=== PATIENT | female | born 1970 | race African-American/Black ===

== ENCOUNTER 2019-12-24 15:26 | Inpatient (IN) | payer MEDICAID, OTHER ==
[~2019-12-24] VITALS: Ht 165.1 cm; Wt 52.6 kg
[~2019-12-24 15:26] MED LIST: ATIVAN1 MG ORAL; COLACE100 MG ORAL; FOLIC ACID1 MG ORAL; MIRALAX17 GM ORAL; MULTIVITAMINS1 EAC2 ORAL; NKM; PERCOCET 7.5-31 EACH ORAL; PROTONIX40 MG ORAL; REGLAN5 MG ORAL; THIAMINE HCL100 MG ORAL; ZOFRAN4 MG ORAL
--- NOTE | 2019-12-24 15:28 | NUR ---
ED Nurse Note: PT arrived with ra 826 due upper left badomen pain x 3 days with nausea and vomiting. Pt reports she cant keep anything down. pt groaning. pt states he has history of pancreatitis.
[2019-12-24 15:29] VITALS: BP 118/86
[2019-12-24] MEDS ORDERED: Morphine Sulfate 4mg/ml Inj (IV USE ONLY) IVP ONE ×2 (15:45→16:45)
--- NOTE | 2019-12-24 16:03 | Emergency Room Report ---
History of Present Illness General Chief Complaint: Abdominal Pain Source: Patient, EMS Present Illness HPI Patient has a history of alcohol abuse. She states that intermittently she has quit drinking. She states that she has had pancreatitis in the past, however, it has been a couple years since she has had an episode of pancreatitis. She admits that 3 days ago she did have a drinking binge. Since that time she has had pain in her upper abdomen and vomiting. She states that she tried to take hydrocodone at home but the pain and vomiting were too severe to tolerate. She states this feels exactly how her pancreatitis is felt in the past. She denies fever or chills. She denies headache or neck pain. She denies trauma. She has no other complaints. Allergies: Coded Allergies: No Known Allergies (Unverified , 01/04/13) COVID-19 Screening Contact w/high risk pt: No Experienced COVID-19 symptoms?: Yes COVID-19 Testing performed LEGAL SERVICES PROFESSIONAL: No - UNK Patient History Past Medical History: see triage record, HTN, other - pancreatitis secondary to ETOH abuse Social History: Reports: smoking, alcohol use - heavy, drug use - THC occasionally Now: No Reviewed Nursing Documentation: PMH: Agreed; PSxH: Agreed Nursing Documentation-PMH Past Medical History: No History, Except For Hx Cardiac Problems: No Hx Hypertension: Yes Hx Cancer: No Hx Neurological Problems: No Review of Systems All Other Systems: negative except mentioned in HPI Physical Exam Vital Signs Date Time Temp Pulse Resp B/P (MAP) Pulse Ox O2 Delivery O2 Flow Rate FiO2 12/24/19 15:20 99.3 124 20 118/86 (97) 98 Room Air Sp02 EP Interpretation: reviewed, normal General Appearance: no apparent distress, alert, GCS 15, non-toxic Head: normocephalic, atraumatic Eyes: bilateral eye normal inspection, bilateral eye PERRL ENT: hearing grossly normal, normal pharynx, no angioedema, normal voice Neck: full range of motion, supple/symm/no masses Respiratory: chest non-tender, lungs clear, normal breath sounds, no respiratory distress, no retraction, no accessory muscle use, speaking full sentences Cardiovascular #1: regular rate, rhythm, no edema, tachycardia Gastrointestinal: soft, non-distended, no rebound, guarding - voluntary, tenderness - TTP in the epigastrium Rectal: deferred Musculoskeletal: back normal, normal range of motion, non-tender Neurologic: alert, motor strength/tone normal, oriented x3, sensory intact, responsive, speech normal Psychiatric: judgement/insight normal, memory normal, mood/affect normal, no suicidal/homicidal ideation Skin: no rash, normal color Medical Decision Making Diagnostic Impression: Primary Impression: Gastritis Additional Impressions: Dehydration Intractable vomiting VANDANA (acute kidney injury) UTI (urinary tract infection) ER Course This patient had presented with epigastric pain. Differential diagnosis included pancreatitis, cholecystitis, cholelithiasis, hepatitis, gastritis to name a few. Initially I suspected pancreatitis, however, the patient's lipase was within normal limits. Patient did have several episodes of vomiting and required narcotic pain medication to control her pain. Given the ongoing symptoms, I did obtain an ultrasound of the right upper quadrant to assess the gallbladder. Gallbladder was unremarkable. The liver was found to have some coarsened echogenicity. I suspect the liver findings are secondary to the patient's known heavy alcohol abuse. Patient was given IV Pepcid and did have significant improvement in her symptoms. I suspect there is an element of gastritis and possibly peptic ulcer disease. The patient's urinalysis is contaminated, as a precaution she was given broad-spectrum antibiotics. Patient also had an elevated creatinine consistent with acute kidney injury. Patient is admitted for acute kidney injury, dehydration and intractable vomiting. Laboratory Tests Test 12/24/19 15:30 12/24/19 18:16 White Blood Count 13.8 K/UL (4.8-10.8) H Red Blood Count 4.73 M/UL (4.20-5.40) Hemoglobin 16.6 G/DL (12.0-16.0) H Hematocrit 49.2 % (37.0-47.0) H Mean Corpuscular Volume 104 FL (80-99) H Mean Corpuscular Hemoglobin 35.0 PG (27.0-31.0) H Mean Corpuscular Hemoglobin Concent 33.7 G/DL (32.0-36.0) Red Cell Distribution Width 13.1 % (11.6-14.8) Platelet Count 295 K/UL (150-450) Mean Platelet Volume 7.4 FL (6.5-10.1) Neutrophils (%) (Auto) 78.9 % (45.0-75.0) H Lymphocytes (%) (Auto) 12.9 % (20.0-45.0) L Monocytes (%) (Auto) 7.6 % (1.0-10.0) Eosinophils (%) (Auto) 0.0 % (0.0-3.0) Basophils (%) (Auto) 0.7 % (0.0-2.0) Sodium Level 138 MMOL/L (136-145) Potassium Level 3.6 MMOL/L (3.5-5.1) Chloride Level 97 MMOL/L (98-107) L Carbon Dioxide Level 23 MMOL/L (21-32) Anion Gap 18 mmol/L (5-15) H Blood Urea Nitrogen 30 mg/dL (7-18) H Creatinine 1.5 MG/DL (0.55-1.30) H Estimated Glomerular Filtration Rate 45.1 mL/min (>60) Glucose Level 133 MG/DL (74-106) H Calcium Level 9.8 MG/DL (8.5-10.1) Total Bilirubin 1.8 MG/DL (0.2-1.0) H Direct Bilirubin 0.4 MG/DL (0.0-0.3) H Aspartate Amino Transferase (AST) 17 U/L (15-37) Alanine Aminotransferase (ALT) 17 U/L (12-78) Alkaline Phosphatase 46 U/L (46-116) Total Protein 9.5 G/DL (6.4-8.2) H Albumin 5.2 G/DL (3.4-5.0) H Globulin 4.3 g/dL Albumin/Globulin Ratio 1.2 (1.0-2.7) Lipase 105 U/L (73-393) Urine Color Yellow Urine Appearance Cloudy Urine pH 6 (4.5-8.0) Urine Specific [place] 1.020 (1.005-1.035) Urine Protein 4+ (NEGATIVE) H Urine Glucose (UA) Negative (NEGATIVE) Urine Ketones 4+ (NEGATIVE) H Urine Blood 2+ (NEGATIVE) H Urine Nitrite Negative (NEGATIVE) Urine Bilirubin 1+ (NEGATIVE) H Urine Ictotest Negativ (NEGATIVE) Urine Urobilinogen 1 MG/DL (0.0-1.0) H Urine Leukocyte Esterase 1+ (NEGATIVE) H Urine RBC 10-15 /HPF (0 - 2) H Urine WBC 5-10 /HPF (0 - 2) H Urine Squamous Epithelial Cells Moderate /LPF (NONE/OCC) H Urine Bacteria Many /HPF (NONE) H Last Vital Signs Date Time Temp Pulse Resp B/P (MAP) Pulse Ox O2 Delivery O2 Flow Rate FiO2 12/24/19 15:29 124 20 Room Air 12/24/19 15:29 99.3 118/86 98 Disposition: ADMITTED INPATIENT Condition: Serious Laura Fu DO Dec 24, 2019 16:03
[2019-12-24 16:04] LABS: CALCIUM 9.8 MG/DL (8.5-10.1); CREATININE 1.5 MG/DL (0.55-1.30); POTASSIUM 3.6 MMOL/L (3.5-5.1)
[2019-12-24 16:05] LABS: BASOPHILS % (AUTO) 0.7 % (0.0-2.0); HEMATOCRIT 49.2 % (37.0-47.0); HEMOGLOBIN 16.6 G/DL (12.0-16.0); LYMPHOCYTES % (AUTO) 12.9 % (20.0-45.0); MEAN CORPUSCULAR VOLUME 104 FL (80-99); MONOCYTES % (AUTO) 7.6 % (1.0-10.0); NEUTROPHILS % (AUTO) 78.9 % (45.0-75.0); PLATELET COUNT 295 K/UL (150-450); RED BLOOD COUNT 4.73 M/UL (4.20-5.40); RED CELL DISTRIBUTION WIDTH 13.1 % (11.6-14.8); WHITE BLOOD COUNT 13.8 K/UL (4.8-10.8)
[2019-12-24 16:15] LABS: ALBUMIN 5.2 G/DL (3.4-5.0); ALBUMIN/GLOBULIN RATIO 1.2 (1.0-2.7); BILIRUBIN,TOTAL 1.8 MG/DL (0.2-1.0)
[2019-12-24 16:21] LABS: BILIRUBIN,DIRECT 0.4 MG/DL (0.0-0.3)
--- NOTE | 2019-12-24 16:58 | NUR ---
ED Nurse Note: US at bedside
[2019-12-24 17:58] VITALS: BP 115/79
--- NOTE | 2019-12-24 18:08 | NUR ---
ED Nurse Note: Pt ambulated to restroom with steady gait. pt reports that pepcid alleviated her pain. pt attempting to get urine sample.
--- NOTE | 2019-12-24 18:20 | Diagnostic Imaging Report ---
EXAM: US Abdomen Complete CLINICAL HISTORY: PAIN TECHNIQUE: Real-time ultrasound of the abdomen with image documentation. COMPARISON: 09/09/2013. 03/05/2015. FINDINGS: Liver: Liver measures 12.72 cm with coarsened echogenicity. No intrahepatic bile duct dilation. Gallbladder: Gallbladder is unremarkable. No gallstones. Common bile duct: Common bile duct measures 0.3 cm. No stones. No dilation. Pancreas: The pancreas is within normal limits. Kidneys: Right kidney measures 9.4 x 3.9 x 4.8 cm without hydronephrosis. Left kidney measures 10.6 x 4.8 x 4.9 cm without hydronephrosis. 1.4 cm simple left renal cyst, based on ultrasound criteria. No follow-up is necessary. No stones. Spleen: Spleen measures 6.82 cm. Aorta: Abdominal aorta is normal in caliber. No aneurysm. Inferior vena cava: Inferior vena cava is unremarkable. IMPRESSION: 1. Coarsened echogenicity of the hepatic parenchyma of uncertain significance. 2. Clinical correlation and correlation with laboratory values are advised. Magnetic resonance imaging of the abdomen may provide additional information. 3. Simple left renal cyst, based on ultrasound criteria. Similar finding was noted on the previous study of 09/09/2013.
--- NOTE | 2019-12-24 18:34 | NUR ---
ED Nurse Note: URINE SAMPLE SENT TO LAB
[2019-12-24 18:44] LABS: APPEARANCE,URINE CLOUDY; BILIRUBIN, URINE 1+ (NEGATIVE); GLUCOSE, URINE (UA) NEGATIVE (NEGATIVE); KETONES,URINE 4+ (NEGATIVE); LEUKOCYTE ESTERASE ,URINE 1+ (NEGATIVE); NITRITE,URINE NEGATIVE (NEGATIVE); PH,URINE 6 (4.5-8.0); PROTEIN,URINE 4+ (NEGATIVE); UROBILINOGEN,URINE 1 MG/DL (0.0-1.0)
[2019-12-24 18:46] LABS: COLOR,URINE YELLOW
--- NOTE | 2019-12-24 19:05 | NUR ---
ED Nurse Note: Report received from ALICIA Paredes.
[2019-12-24 19:45] VITALS: BP 118/71
--- NOTE | 2019-12-24 19:45 | NUR ---
ED Nurse Note: Patient is resting in bed at this time. NAD. Vital signs are stable as documented. She feels much better after medication and has no pain at this time. Safety measures met.
--- NOTE | 2019-12-24 20:30 | NUR ---
ED Nurse Note: report given to ALICIA Villalpando
[2019-12-24] MEDS: Thiamine HCl 100 MG in D5W 55 ML IVPB SCH (20:37)
--- NOTE | 2019-12-24 20:50 | NUR ---
ED Nurse Note: Patient transported to [facility] unit at this time via gurney by [employer]. She is aaox4, breathing is normal and unlabored at time of ED departure. VSS. IV is patent and intact. She took all belongings with her.
--- NOTE | 2019-12-24 21:00 | NUR ---
NURSE NOTES: Received patient per arslan accompanied by ER staff. patient is awake and verbally responsive. alert and oriented X4. on room air, no sob. with iv line on the right ac, saline lock. denies any pain or discomfort. no nausea and vomiting. no skin issues noted. with android phone and ipad with chargers on the bedside. ambulates. with metoclopramide 1 bottle (4 tabs) brought by patient and sent it to the pharmacy([facility]). received admission orders for iv fluids and lab works. reiterated to call and ask for assistance. call light and light button within easy reach. bed locked and in lowest position. will continue plan of care.
--- NOTE | 2019-12-24 21:30 | NUR ---
NURSE NOTES: paged dr. frost for the rest of admission orders, awaiting for call back.
--- NOTE | 2019-12-24 21:50 | NUR ---
NURSE NOTES: Received the rest of admission orders.noted and carried out. charge nurse made aware,
[2019-12-24] MEDS: D5NS 1,000 ML IV SCH (23:13)
[2019-12-25] VITALS: BP 121/76
[2019-12-25] MEDS ORDERED: METOCLOPRAM5 MG/1 M1 IJ (01:02)
--- NOTE | 2019-12-25 01:49 | NUR ---
NURSE NOTES: patient complaints of nausea and vomiting; zofran given as ordered. assisted patient to the bathroom for safety. offered basin and placed on the bedside.
[2019-12-25 04:00] VITALS: BP 115/72
--- NOTE | 2019-12-25 06:23 | NUR ---
NURSE HAND-OFF: Important Events on Shift: N/V X1; ZOFRAN GIVEN ORDERED Patient Status: STABLE Diet: npo EXCEPT ice chips and meds Pending Orders: Pending Results/Labs: Pending MD notification: Latest Vital Signs: Temperature 97.9 , Pulse 75 , B/P 115 /72 , Respiratory Rate 20 , O2 SAT 99 , Room Air, O2 Flow Rate . Vital Sign Comment: Latest Dixon Fall Score: 20 Fall Risk: Low Risk Safety Measures: Call light Within Reach, Bed Alarm Zone 1, Side Rails Side Rails x2, Bed position Low and Locked. Fall Precautions: Patient Fall Education Addendum: 12/25/19 at 0723 by Laina Rodriguez RN HAND-OFF: Report given to miguel silva.
--- NOTE | 2019-12-25 07:22 | NUR ---
NURSE NOTES: Receive report from ALICIA gould. Patient is awake and verbally responsive. alert and oriented X4. on room air, no sob. with iv line on the right ac, patent and intact. denies any pain or discomfort. no nausea and vomiting. Patient currently on NPO except ice chips and meds until further evaluation. Rn instructed patient to use call light for assistance. bed is locked and placed in lowest position. Call light within reach. Will continue to monitor
[2019-12-25 08:00] VITALS: BP 111/57
--- NOTE | 2019-12-25 08:02 | Consultation ---
History of Present Illness General Date patient seen: Dec 25, 2019 Time patient seen: 11:05 Chief Complaint: Abdominal Pain Referring physician: PCP Reason for Consultation: R/o infection Present Illness HPI 49yo F with heavy EtOH use who p/w abd pain. Pt was ruled out for pancreatitis and cholecystitis in ED, no other complaints. R/o UTI, UCx NTD. Pt has remained AF, HDS on RA in house. Mild leukocytosis to 13 on admission. Pt is moaning in pain on exam, history limited, just says her pain is so bad and she's been vomiting for 3 days. Denies any fevers/chills, cough, SOB, resp issues, diarrhea, rashes or other complaints. Allergies: Coded Allergies: No Known Allergies (Unverified , 01/04/13) Medication History Scheduled Metoclopramide Hcl (Metoclopramide Hcl*), 10 MG IJ EVERY 4 HOURS, (Reported) No Known Medications* (NKM - No Known Medications*), 0 ., (Reported) Discontinued Medications Lorazepam* (Ativan*), 1 MG ORAL THREE TIMES A DAY Discontinued Reason: Pt stopped taking med Ondansetron (Zofran), 4 MG ORAL Q8H PRN for Nausea & Vomiting Discontinued Reason: Pt stopped taking med Patient History Healthcare decision maker Resuscitation status Advanced Directive on File Review of Systems ROS Narrative 10-point ROS neg except as noted in HPI Physical Exam Physical Exam Narrative Gen: Moaning in pain HEENT: NCAT Pulm: BL chest rise on RA Abd: Thin, TTP diffusely Ext: No c/c/e Skin: No visible rashes Neuro: Awake, non-focal Last 24 Hour Vital Signs Date Time Temp Pulse Resp B/P (MAP) Pulse Ox O2 Delivery O2 Flow Rate FiO2 12/25/19 04:00 97.9 75 20 115/72 (86) 99 12/25/19 00:00 98.6 79 20 121/76 (91) 98 12/24/19 21:00 Room Air 12/24/19 20:50 98.6 81 15 120/74 100 Room Air 12/24/19 19:45 99.0 86 14 118/71 100 Room Air 12/24/19 17:58 99.0 101 19 115/79 100 Room Air 12/24/19 17:08 99.3 12/24/19 16:14 99.3 11/17/20 15:29 124 20 Room Air 12/24/19 15:29 99.3 124 20 118/86 98 Room Air 12/24/19 15:20 99.3 124 20 118/86 (97) 98 Room Air Intake and Output 12/24/19 12/25/19 19:00 07:00 Intake Total 1000 ml Output Total 0 ml Balance 1000 ml Intake IV Total 1000 ml Output Urine Total 0 ml # Voids 3 Laboratory Tests Test 12/24/19 15:30 12/24/19 18:16 White Blood Count 13.8 K/UL (4.8-10.8) H Red Blood Count 4.73 M/UL (4.20-5.40) Hemoglobin 16.6 G/DL (12.0-16.0) H Hematocrit 49.2 % (37.0-47.0) H Mean Corpuscular Volume 104 FL (80-99) H Mean Corpuscular Hemoglobin 35.0 PG (27.0-31.0) H Mean Corpuscular Hemoglobin Concent 33.7 G/DL (32.0-36.0) Red Cell Distribution Width 13.1 % (11.6-14.8) Platelet Count 295 K/UL (150-450) Mean Platelet Volume 7.4 FL (6.5-10.1) Neutrophils (%) (Auto) 78.9 % (45.0-75.0) H Lymphocytes (%) (Auto) 12.9 % (20.0-45.0) L Monocytes (%) (Auto) 7.6 % (1.0-10.0) Eosinophils (%) (Auto) 0.0 % (0.0-3.0) Basophils (%) (Auto) 0.7 % (0.0-2.0) Sodium Level 138 MMOL/L (136-145) Potassium Level 3.6 MMOL/L (3.5-5.1) Chloride Level 97 MMOL/L (98-107) L Carbon Dioxide Level 23 MMOL/L (21-32) Anion Gap 18 mmol/L (5-15) H Blood Urea Nitrogen 30 mg/dL (7-18) H Creatinine 1.5 MG/DL (0.55-1.30) H Estimat Glomerular Filtration Rate 45.1 mL/min (>60) Glucose Level 133 MG/DL (74-106) H Calcium Level 9.8 MG/DL (8.5-10.1) Total Bilirubin 1.8 MG/DL (0.2-1.0) H Direct Bilirubin 0.4 MG/DL (0.0-0.3) H Aspartate Amino Transf (AST/SGOT) 17 U/L (15-37) Alanine Aminotransferase (ALT/SGPT) 17 U/L (12-78) Alkaline Phosphatase 46 U/L (46-116) Total Protein 9.5 G/DL (6.4-8.2) H Albumin 5.2 G/DL (3.4-5.0) H Globulin 4.3 g/dL Albumin/Globulin Ratio 1.2 (1.0-2.7) Lipase 105 U/L (73-393) Urine Color Yellow Urine Appearance Cloudy Urine pH 6 (4.5-8.0) Urine Specific [place] 1.020 (1.005-1.035) Urine Protein 4+ (NEGATIVE) H Urine Glucose (UA) Negative (NEGATIVE) Urine Ketones 4+ (NEGATIVE) H Urine Blood 2+ (NEGATIVE) H Urine Nitrite Negative (NEGATIVE) Urine Bilirubin 1+ (NEGATIVE) H Urine Ictotest Negativ (NEGATIVE) Urine Urobilinogen 1 MG/DL (0.0-1.0) H Urine Leukocyte Esterase 1+ (NEGATIVE) H Urine RBC 10-15 /HPF (0 - 2) H Urine WBC 5-10 /HPF (0 - 2) H Urine Squamous Epithelial Cells Moderate /LPF (NONE/OCC) H Urine Bacteria Many /HPF (NONE) H Urine Opiates Screen Positive (NEGATIVE) H Urine Barbiturates Screen Negative (NEGATIVE) Phencyclidine (PCP) Screen Negative (NEGATIVE) Urine Amphetamines Screen Negative (NEGATIVE) Urine Benzodiazepines Screen Negative (NEGATIVE) Urine Cocaine Screen Negative (NEGATIVE) Urine Marijuana (THC) Screen Positive (NEGATIVE) H Microbiology Date/Time Source Procedure Growth Status 12/24/19 18:16 Urine,Clean Catch Urine Culture - Preliminary NO GROWTH Resulted Height (Feet): 5 Height (Inches): 5.00 Weight (Pounds): 116 Medications Current Medications Medications (Trade) Dose Ordered Sig/Vicki Route PRN Reason Start Time Stop Time Status Last Admin Dose Admin Clonidine HCl (Catapres Tab) 0.1 mg Q4H PRN ORAL bp over 170 syst 12/24/19 20:15 03/23/20 20:14 Dextrose/Sodium Chloride 1,000 ml @ 75 mls/hr [id number] IV 12/24/19 23:00 01/23/20 22:59 12/24/19 23:13 Famotidine (Pepcid I.v.) 20 mg Q12HR IVP 12/24/19 21:00 01/23/20 20:59 12/24/19 21:31 Ondansetron HCl (Zofran) 4 mg EVERY 4 HOURS PRN IVP Nausea & Vomiting 12/24/19 22:15 01/23/20 22:14 12/25/19 01:33 Thiamine HCl 100 mg/Dextrose 56 ml @ 112 mls/hr Q24H IVPB 12/24/19 20:30 01/23/20 20:29 12/24/19 20:37 Assessment/Plan Assessment/Plan: 49yo F with: Afebrile Leukocytosis to 13, improving Abd pain Heavy EtOH use R/o sepsis, UTI, cholecystitis R/o pancreatitis, lipse wnl 12/23 UA 5-10 WBC, UCx NTD Utox +opiates and MJ Abd US: Coarsened echogenicity of the hepatic parenchyma of uncertain significance. Simple left renal cyst, based on ultrasound criteria. Similar finding was noted on the previous study of 09/09/2013. VANDANA vs CKD, Cr 1.5 Plan: Monitor off abx for now, no clear infection present CT A/P to evaluate for underlying process given severe abd pain HIV screen COVID rapid Ag screen Trend WBC Trend Cr Monitor CBC/CMP Monitor temp curve, hemodynamics Monitor resp status D/w RN and primary Dr. Fish Thank you for this consult. [facility] will continue to follow. Geraldine Ritchie M.D. Dec 25, 2019 08:02
--- NOTE | 2019-12-25 09:10 | General Progress Note ---
Subjective Allergies: Coded Allergies: No Known Allergies (Unverified , 01/04/13) Objective Last 24 Hour Vital Signs Date Time Temp Pulse Resp B/P (MAP) Pulse Ox O2 Delivery O2 Flow Rate FiO2 12/25/19 04:00 97.9 75 20 115/72 (86) 99 12/25/19 00:00 98.6 79 20 121/76 (91) 98 12/24/19 21:00 Room Air 12/24/19 20:50 98.6 81 15 120/74 100 Room Air 12/24/19 19:45 99.0 86 14 118/71 100 Room Air 12/24/19 17:58 99.0 101 19 115/79 100 Room Air 12/24/19 17:08 99.3 12/24/19 16:14 99.3 12/24/19 15:29 124 20 Room Air 12/24/19 15:29 99.3 124 20 118/86 98 Room Air 12/24/19 15:20 99.3 124 20 118/86 (97) 98 Room Air Intake and Output 12/24/19 12/25/19 19:00 07:00 Intake Total 1000 ml Output Total 0 ml Balance 1000 ml Intake IV Total 1000 ml Output Urine Total 0 ml # Voids 3 Laboratory Tests 12/24/19 15:30: White Blood Count 13.8H, Red Blood Count 4.73, Hemoglobin 16.6H, Hematocrit 49. 2H, Mean Corpuscular Volume 104H, Mean Corpuscular Hemoglobin 35.0H, Mean Co rpuscular Hemoglobin Concent 33.7, Red Cell Distribution Width 13.1, Platelet Count 295, Mean Platelet Volume 7.4, Neutrophils (%) (Auto) 78.9H, Lymphocytes (%) (Auto) 12.9L, Monocytes (%) (Auto) 7.6, Eosinophils (%) (Auto) 0.0, Basophils (%) (Auto) 0.7, Sodium Level 138, Potassium Level 3.6, Chloride Level 97L, Carbon Dioxide Level 23, Anion Gap 18H, Blood Urea Nitrogen 30H, Creatinine 1.5H, Estimat Glomerular Filtration Rate 45.1, Glucose Level 133H, Calcium Level 9.8, Total Bilirubin 1.8H, Direct Bilirubin 0.4H, Aspartate Amino Transf (AST/SGOT) 17, Alanine Aminotransferase (ALT/SGPT) 17, Alkaline Phosphatase 46, Total Protein 9.5H, Albumin 5.2H, Globulin 4.3, Albumin/Globulin Ratio 1.2, Lipase 105 12/24/19 18:16: Urine Color Yellow, Urine Appearance Cloudy, Urine pH 6, Urine Specific [place] 1.020, Urine Protein 4+H, Urine Glucose (UA) Negative, Urine Ketones 4+H, Urine Blood 2+H, Urine Nitrite Negative, Urine Bilirubin 1+H, Urine Ictotest Negativ, Urine Urobilinogen 1H, Urine Leukocyte Esterase 1+H, Urine RBC 10-15H, Urine WBC 5-10H, Urine Squamous Epithelial Cells ModerateH, Urine Bacteria ManyH, Urine Opiates Screen PositiveH, Urine Barbiturates Screen Negative, Phencyclidine (PCP) Screen Negative, Urine Amphetamines Screen Negative, Urine Benzodiazepines Screen Negative, Urine Cocaine Screen Negative, Urine Marijuana (THC) Screen PositiveH Height (Feet): 5 Height (Inches): 5.00 Weight (Pounds): 116 General Appearance: alert EENT: PERRL/EOMI Neck: supple Cardiovascular: normal rate Abdomen: soft, hypoactive bowel sounds, tender Extremities: non-tender Assessment/Plan Assessment/Plan: ETOH abuse abd pain ? cirrhosis RI h/o pancreatitis labs and us reviewed start clears and advance as tolerated thiamine ppi repeat labs will fu Homero Mckeon MD Dec 25, 2019 09:10
[2019-12-25 09:30] LABS: EOSINOPHILS % (AUTO) 0.3 % (0.0-3.0); HEMATOCRIT 41.6 % (37.0-47.0); HEMOGLOBIN 13.8 G/DL (12.0-16.0); LYMPHOCYTES % (AUTO) 30.4 % (20.0-45.0); MEAN CORPUSCULAR VOLUME 108 FL (80-99); MONOCYTES % (AUTO) 8.7 % (1.0-10.0); NEUTROPHILS % (AUTO) 59.6 % (45.0-75.0); PLATELET COUNT 204 K/UL (150-450); RED BLOOD COUNT 3.85 M/UL (4.20-5.40); RED CELL DISTRIBUTION WIDTH 13.1 % (11.6-14.8); WHITE BLOOD COUNT 10.2 K/UL (4.8-10.8)
--- NOTE | 2019-12-25 10:28 | NUR ---
NURSE NOTES: patient in pain, pain scale 10/10. RN made Dr. Mckeon and Dr. Fish aware. Per cassidy Daniels Rn order Morphine 2mg IV ONCE for pain
[2019-12-25 10:51] LABS: ALANINE AMINOTRANSFERASE 15 U/L (12-78); ALBUMIN 3.7 G/DL (3.4-5.0); ALBUMIN/GLOBULIN RATIO 1.1 (1.0-2.7); ALKALINE PHOSPHATASE 32 U/L (46-116); ANION GAP 8 mmol/L (5-15); ASPARTATE AMINO TRANSFERASE 16 U/L (15-37); BILIRUBIN,TOTAL 1.5 MG/DL (0.2-1.0); BLOOD UREA NITROGEN 13 mg/dL (7-18); CALCIUM 8.5 MG/DL (8.5-10.1); CARBON DIOXIDE 29 MMOL/L (21-32); CHLORIDE 103 MMOL/L (98-107); CHOLESTEROL 178 MG/DL (< 200); CREATINE KINASE 66 U/L (26-308); CREATININE 0.8 MG/DL (0.55-1.30); GAMMA GLUTAMYL TRANSPEPTIDASE 21 U/L (5-85); HDL CHOLESTEROL 76 MG/DL (40-60); PHOSPHORUS 2.3 MG/DL (2.5-4.9); SODIUM 140 MMOL/L (136-145); TRIGLYCERIDES 90 MG/DL (30-150)
[2019-12-25] MEDS ORDERED: Morphine Sulfate 2mg/ml Inj(IV/IM USE ONLY) IVP SCH (11:00)
--- NOTE | 2019-12-25 11:30 | History and Physical Report ---
DATE OF ADMISSION: 12/24/2019 TIME SEEN: On 12/25/2019 at 10 a.m. CONSULTANTS: 1. Crescencio Cottrell MD. 2. Homero Mckeon MD. 3. Nils Norton MD. CHIEF COMPLAINT: Gastritis, vomiting, UTI, VANDANA. BRIEF HISTORY: This is a 49-year-old female presents to [facility] with above-mentioned diagnoses, admitted to medical floor, currently writhing in pain in bed, refusing to answer questions. REVIEW OF SYSTEMS: Unavailable. PAST MEDICAL HISTORY: Includes abdominal pain, gastritis, VANDANA. PAST SURGICAL HISTORY: Unknown. MEDICATIONS: Include pantoprazole, morphine, Zofran, famotidine, thiamine, clonidine. ALLERGIES: Denies. SOCIAL HISTORY: Unable to obtain secondary to the patient's condition and refused PHYSICAL EXAMINATION: GENERAL: Anxious in bed, refusing to answer questions. VITAL SIGNS: Temperature 98 degrees, pulse 98, respirations 20, blood pressure 111/57. CARDIOVASCULAR: No murmur. LUNGS: Distant and clear. ABDOMEN: Positive bowel sounds. Nontender and nondistended. EXTREMITIES: No cyanosis or edema. NEUROLOGIC: The patient moves all extremities, slightly weak. LABORATORY AND DIAGNOSTIC DATA: Labs at this time show initial white count 13 now is 10.2, CBC is normal otherwise. BMP shows chloride 97, BUN and creatinine 30/1.5, glucose 133. Urinalysis, 2+ blood, 1+ leukocyte esterase. Urine tox positive for marijuana and opiates. ASSESSMENT: 1. Gastritis. 2. Vomiting. 3. Drug abuse. 4. Abdominal pain. 5. VANDANA. 6. UTI. PLAN: 1. IV fluids. 2. Pain control. 3. Dietary followup. 4. Detox. 5. Antibiotics per Infectious Diseases. 6. CBC and BMP in the morning. Franklin Fish D.O. DR: Celina JOB#: [id number] CC:
[2019-12-25 12:00] VITALS: BP 111/51
[2019-12-25] MEDS: D5NS 1,000 ML IV SCH (12:22)
[2019-12-25 12:53] LABS: BILIRUBIN,DIRECT 0.3 MG/DL (0.0-0.3)
--- NOTE | 2019-12-25 13:01 | Consultation ---
Consult Note Consult Note Asked to evaluate at the request of Dr. Fish for fluid and electrolyte management and elevated serum creatinine HPI Patient has a history of alcohol abuse. She states that intermittently she has quit drinking. She states that she has had pancreatitis in the past, however, it has been a couple years since she has had an episode of pancreatitis. She admits that 3 days ago she did have a drinking binge. Since that time she has had pain in her upper abdomen and vomiting. She states that she tried to take hydrocodone at home but the pain and vomiting were too severe to tolerate. She states this feels exactly how her pancreatitis is felt in the past. She denies fever or chills. She denies headache or neck pain. She denies trauma. She has no other complaints. Allergies: No Known Allergies (Unverified , 01/04/13) COVID-19 Screening Contact w/high risk pt: No Experienced COVID-19 symptoms?: Yes COVID-19 Testing performed BOAT TENDER: No - UNK Past Medical History: see triage record, HTN, other - pancreatitis secondary to ETOH abuse Social History: Reports: smoking, alcohol use - heavy, drug use - THC occasionally Now: No Reviewed Nursing Documentation: PMH: Agreed; PSxH: Agreed Past Medical History: No History, Except For Hx Hypertension: Yes Hx Neurological Problems: No All Other Systems: negative except mentioned in HPI Assessment/Plan Renal failure mostly dehydration Electrolyte imbalance Urine positive for cannabis and opiates Gastritis UTI Intractable vomiting IV fluid Correct electrolytes Antibiotics Per consultants Crescencio Cottrell MD Dec 25, 2019 13:01
[2019-12-25] MEDS: Potassium Phosphate 15mm/250ml 250 ML IVPB SCH ×2 (13:31→17:45)
[2019-12-25 16:00] VITALS: BP 160/92
--- NOTE | 2019-12-25 18:19 | NUR ---
NURSE NOTES: Patient continuously has intractable vomiting as well as unbearable pain. Dr. Mckeon made aware and RN was given order for morphine 2mg IV q6 PRN for pain
[2019-12-25] MEDS ORDERED: Morphine Sulfate 2mg/ml Inj(IV/IM USE ONLY) IVP PRN (18:30)
--- NOTE | 2019-12-25 19:30 | NUR ---
NURSE HAND-OFF: Important Events on Shift:intractable vomitting, continuous pain, unable to tolerate diet Patient Status: Diet: liquid diet Pending Orders: stable Pending Results/Labs:n/a Pending MD notification:n/a Latest Vital Signs: Temperature 97.8 , Pulse 100 , B/P 160 /92 , Respiratory Rate 20 , O2 SAT 100 , Room Air, O2 Flow Rate . Vital Sign Comment: stable Latest Dixon Fall Score: 20 Fall Risk: Low Risk Safety Measures: Call light Within Reach, Bed Alarm Zone 1, Side Rails Side Rails x2, Bed position Low and Locked. Fall Precautions: Yellow Socks Yellow Gown Patient Fall Education Report given to ALICIA Villalpando.
--- NOTE | 2019-12-25 19:35 | NUR ---
NURSE NOTES: Received report from miguel silva. patient is awake and verbally responsive. alert and oriented X4. on room air, no sob. with iv line on the right ac, saline lock. per pt, " she feel sick of her n/v and pain on the abd."negative covid 19 swab rapid. on clear liquid diet. s/p potassium phosphate 2 bags; new order for kcl 40 meq BID for k level of 3.0. ambulates. reiterated to call and ask for assistance to prevent fall or injury. call light and light button within easy reach. bed locked and in lowest position.bed alarm on. will continue plan of care.
[2019-12-25 20:00] VITALS: BP 150/98
--- NOTE | 2019-12-25 20:15 | NUR ---
NURSE NOTES: patient is kept on vomiting.c/o pain on the abdomen. noted with guarding on the abdomen, perspiration and crying. offered ice chips. reiterated to patient the next dose of morphine. vitals taken bp 150/97 mmhg, 87bpm, 19 cpm, 98%,98.2F.charge nurse made aware.
[2019-12-25] MEDS: Thiamine HCl 100 MG in D5W 55 ML IVPB SCH (20:33)
--- NOTE | 2019-12-25 20:40 | NUR ---
NURSE NOTES: came and visit the patient. went to the room to assist them. per patient and pepcid works best for her and dilaudid as pain mngt. paged dr. carrero for further orders. awaiting for call back. charge nurse made aware. zofran given due complaints of nausea and vomiting. reiterated to stay on bed and ask for assistance to prevent injury of fall.
[2019-12-25] MEDS ORDERED: HYDROmorphone 1mg/ml Carpuject IVP SCH (21:15)
--- NOTE | 2019-12-25 21:30 | NUR ---
NURSE NOTES: paged dr. carrero for the 2nd time and received an order to keep zofran and pepcid and to change morphine to dilaudid. order noted and carried out. administer pain mngt as order. charge nurse made aware. Addendum: 12/25/19 at 2242 by Laina Rodriguez RN per dr. alfaro " cleared for d/c tomorrow".
[2019-12-26] VITALS: BP 132/76
[2019-12-26] MEDS: HYDROmorphone 1mg/ml Carpuject IVP PRN ×6 (01:28→22:29)
[2019-12-26] MEDS: D5NS 1,000 ML IV SCH ×2 (01:39→15:50)
[2019-12-26 04:00] VITALS: BP 125/76
--- NOTE | 2019-12-26 06:17 | NUR ---
NURSE HAND-OFF: Important Events on Shift: PAIN MNGT; N/V MNGT; SAFETY Patient Status: STABLE Diet: CLEAR LIQUID DIET Pending Orders: Pending Results/Labs: Pending MD notification: Latest Vital Signs: Temperature 97.6 , Pulse 73 , B/P 125 /76 , Respiratory Rate 20 , O2 SAT 99 , Room Air, O2 Flow Rate . Vital Sign Comment: Latest Dixon Fall Score: 20 Fall Risk: Low Risk Safety Measures: Call light Within Reach, Bed Alarm Zone 1, Side Rails Side Rails x2, Bed position Low and Locked. Fall Precautions: Yellow Socks Yellow Gown Patient Fall Education Addendum: 12/26/19 at 0716 by Laina Rodriguez RN HAND-OFF: Report given to miguel peraza.
[2019-12-26 07:27] LABS: BASOPHILS % (AUTO) 0.8 % (0.0-2.0); EOSINOPHILS % (AUTO) 0.8 % (0.0-3.0); HEMATOCRIT 35.7 % (37.0-47.0); HEMOGLOBIN 12.7 G/DL (12.0-16.0); LYMPHOCYTES % (AUTO) 36.6 % (20.0-45.0); MEAN CORPUSCULAR VOLUME 101 FL (80-99); MONOCYTES % (AUTO) 9.5 % (1.0-10.0); NEUTROPHILS % (AUTO) 52.3 % (45.0-75.0); PLATELET COUNT 191 K/UL (150-450); RED BLOOD COUNT 3.55 M/UL (4.20-5.40); RED CELL DISTRIBUTION WIDTH 12.2 % (11.6-14.8)
--- NOTE | 2019-12-26 07:41 | Infectious Diseases Prog Note ---
Assessment/Plan 49yo F with: Afebrile Leukocytosis to 13, improving Abd pain Heavy EtOH use R/o sepsis, UTI, cholecystitis R/o pancreatitis, lipse wnl 12/23 UA 5-10 WBC, UCx NTD Utox +opiates and MJ Abd US: Coarsened echogenicity of the hepatic parenchyma of uncertain significance. Simple left renal cyst, based on ultrasound criteria. Similar finding was noted on the previous study of 09/09/2013. 12/24 CT A/P wo con: Read pending COVID rapid PCR neg VANDANA, Cr 1.5, improved HIV screen neg Plan: Monitor off abx for now, no clear infection present F/u CT A/P to evaluate for underlying process given severe abd pain Trend WBC Trend Cr Monitor CBC/CMP Monitor temp curve, hemodynamics Monitor resp status D/w RN Thank you for this consult. [facility] will continue to follow. Subjective Allergies: Coded Allergies: No Known Allergies (Unverified , 01/04/13) AF WBC improved to 9 VANDANA improved Feeling better, less pain, less N/V Objective Last 24 Hour Vital Signs Date Time Temp Pulse Resp B/P (MAP) Pulse Ox O2 Delivery O2 Flow Rate FiO2 12/26/19 06:03 97.6 12/26/19 04:00 97.6 73 20 125/76 (92) 99 12/26/19 01:58 97.6 12/26/19 00:00 97.6 76 20 132/76 (94) 98 12/25/19 21:49 97.9 12/25/19 21:00 Room Air 12/25/19 20:00 97.9 86 20 150/98 (115) 100 12/25/19 16:00 97.8 100 20 160/92 (114) 100 12/25/19 12:00 97.0 74 18 111/51 (71) 100 12/25/19 09:00 Room Air 12/25/19 08:00 98.1 90 20 111/57 (75) 99 Height (Feet): 5 Height (Inches): 5.00 Weight (Pounds): 116 Gen: NAD in bed HEENT: NCAT, EOMI CV: RRR Pulm: BL chest rise on RA Abd: Thin, soft, mildly TTP diffusely Ext: No c/c/e Neuro: Awake, alert, interactive Microbiology Date/Time Source Procedure Growth Status 12/25/19 09:15 Nasopharynx SARS-CoV-2 RdRp Gene Assay - Final Complete 12/24/19 18:16 Urine,Clean Catch Urine Culture - Preliminary NO GROWTH Resulted Laboratory Tests Test 12/25/19 08:10 12/26/19 06:21 White Blood Count 10.2 K/UL (4.8-10.8) 9.0 K/UL (4.8-10.8) Red Blood Count 3.85 M/UL (4.20-5.40) L 3.55 M/UL (4.20-5.40) L Hemoglobin 13.8 G/DL (12.0-16.0) 12.7 G/DL (12.0-16.0) Hematocrit 41.6 % (37.0-47.0) 35.7 % (37.0-47.0) L Mean Corpuscular Volume 108 FL (80-99) H 101 FL (80-99) H Mean Corpuscular Hemoglobin 35.9 PG (27.0-31.0) H 35.9 PG (27.0-31.0) H Mean Corpuscular Hemoglobin Concent 33.2 G/DL (32.0-36.0) 35.7 G/DL (32.0-36.0) Red Cell Distribution Width 13.1 % (11.6-14.8) 12.2 % (11.6-14.8) Platelet Count 204 K/UL (150-450) 191 K/UL (150-450) Mean Platelet Volume 7.3 FL (6.5-10.1) 7.3 FL (6.5-10.1) Neutrophils (%) (Auto) 59.6 % (45.0-75.0) 52.3 % (45.0-75.0) Lymphocytes (%) (Auto) 30.4 % (20.0-45.0) 36.6 % (20.0-45.0) Monocytes (%) (Auto) 8.7 % (1.0-10.0) 9.5 % (1.0-10.0) Eosinophils (%) (Auto) 0.3 % (0.0-3.0) 0.8 % (0.0-3.0) Basophils (%) (Auto) 1.0 % (0.0-2.0) 0.8 % (0.0-2.0) Sodium Level 140 MMOL/L (136-145) Pending Potassium Level 3.0 MMOL/L (3.5-5.1) L Pending Chloride Level 103 MMOL/L (98-107) Pending Carbon Dioxide Level 29 MMOL/L (21-32) Pending Anion Gap 8 mmol/L (5-15) Blood Urea Nitrogen 13 mg/dL (7-18) Pending Creatinine 0.8 MG/DL (0.55-1.30) Pending Estimat Glomerular Filtration Rate > 60 mL/min (>60) Pending Glucose Level 111 MG/DL (74-106) H Pending Hemoglobin A1c 5.5 % (4.3-6.0) Uric Acid 5.5 MG/DL (2.6-7.2) Calcium Level 8.5 MG/DL (8.5-10.1) Pending Phosphorus Level 2.3 MG/DL (2.5-4.9) L Magnesium Level 2.1 MG/DL (1.8-2.4) Total Bilirubin 1.5 MG/DL (0.2-1.0) H Pending Direct Bilirubin 0.3 MG/DL (0.0-0.3) Gamma Glutamyl Transpeptidase 21 U/L (5-85) Aspartate Amino Transf (AST/SGOT) 16 U/L (15-37) Pending Alanine Aminotransferase (ALT/SGPT) 15 U/L (12-78) Pending Alkaline Phosphatase 32 U/L (46-116) L Pending Total Creatine Kinase 66 U/L (26-308) C-Reactive Protein, Quantitative 0.5 mg/dL (0.00-0.90) Pro-B-Type Natriuretic Peptide 136 pg/mL (0-125) H Total Protein 7.1 G/DL (6.4-8.2) Pending Albumin 3.7 G/DL (3.4-5.0) Pending Globulin 3.4 g/dL Pending Albumin/Globulin Ratio 1.1 (1.0-2.7) Triglycerides Level 90 MG/DL (30-150) Cholesterol Level 178 MG/DL (< 200) LDL Cholesterol 80 mg/dL (<100) HDL Cholesterol 76 MG/DL (40-60) H Cholesterol/HDL Ratio 2.3 (3.3-4.4) L Lipase 89 U/L (73-393) Vitamin B12 Level 334 PG/ML (193-986) Folate 12.9 NG/ML (8.6-58.9) Thyroid Stimulating Hormone (TSH) 1.489 uiU/mL (0.358-3.740) HIV (1&2) Antibody Rapid Negative (NEGATIVE) Prothrombin Time Pending Prothromb Time International Ratio Pending Ammonia Pending Hepatitis A IgM Antibody Pending Hepatitis B Surface Antigen Pending Hepatitis B Core IgM Antibody Pending Hepatitis C Antibody Pending Current Medications Medications (Trade) Dose Ordered Sig/Vicki Route PRN Reason Start Time Stop Time Status Last Admin Dose Admin Acetaminophen (Tylenol) 650 mg Q6H PRN ORAL For Pain 12/25/19 15:45 01/24/20 15:44 Clonidine HCl (Catapres Tab) 0.1 mg Q4H PRN ORAL bp over 170 syst 12/24/19 20:15 03/23/20 20:14 Dextrose/Sodium Chloride 1,000 ml @ 75 mls/hr [id number] IV 12/24/19 23:00 01/23/20 22:59 12/25/19 12:22 Famotidine (Pepcid I.v.) 20 mg Q12H PRN IVP stomach pain 12/25/19 15:48 01/24/20 15:47 12/25/19 15:59 Hydromorphone HCl (Dilaudid) 1 mg Q4H PRN IVP For Pain 12/25/19 21:15 01/01/20 21:14 12/26/19 05:33 Ondansetron HCl (Zofran) 4 mg EVERY 4 HOURS PRN IVP Nausea & Vomiting 12/24/19 22:15 01/23/20 22:14 12/26/19 05:17 Pantoprazole (Protonix) 40 mg ACBREAKFAST ORAL 12/26/19 11:30 01/25/20 11:29 Potassium Chloride (K-Dur) 40 meq TWICE A DAY ORAL 12/25/19 18:00 03/24/20 17:59 Thiamine HCl 100 mg/Dextrose 56 ml @ 112 mls/hr Q24H IVPB 12/24/19 20:30 01/23/20 20:29 12/25/19 20:33 Geraldine Ritchie M.D. Dec 26, 2019 07:41
[2019-12-26 07:54] LABS: AMMONIA 15 umol/L (11-32)
[2019-12-26 07:59] LABS: ALANINE AMINOTRANSFERASE 16 U/L (12-78); ALBUMIN 3.4 G/DL (3.4-5.0); ALBUMIN/GLOBULIN RATIO 1.1 (1.0-2.7); ALKALINE PHOSPHATASE 28 U/L (46-116); ANION GAP 13 mmol/L (5-15); ASPARTATE AMINO TRANSFERASE 14 U/L (15-37); BILIRUBIN,TOTAL 1.2 MG/DL (0.2-1.0); BLOOD UREA NITROGEN 7 mg/dL (7-18); CALCIUM 7.9 MG/DL (8.5-10.1); CARBON DIOXIDE 23 MMOL/L (21-32); CHLORIDE 101 MMOL/L (98-107); CREATININE 0.6 MG/DL (0.55-1.30); POTASSIUM 2.8 MMOL/L (3.5-5.1); SODIUM 137 MMOL/L (136-145)
[2019-12-26 08:00] VITALS: BP 125/93
--- NOTE | 2019-12-26 08:07 | NUR ---
NURSE NOTES: received report from ALICIA Villalpando. patient in bed. a&ox4, verbally responsive. no respiratory distress noted. Dilaudid helped for pain. no vomiting at this time. IV on RAC running D5ns@75. bed in the lowest position and locked. call light within reach. will continue to provide plan of care.
[2019-12-26 08:26] LABS: BILIRUBIN,DIRECT 0.2 MG/DL (0.0-0.3)
--- NOTE | 2019-12-26 10:58 | Nephrology Progress Note ---
Assessment/Plan Problem List: (1) VANDANA (acute kidney injury) (2) Dehydration (3) Intractable vomiting (4) Hypokalemia Assessment No failure mostly dehydration Electrolyte imbalance Urine positive for cannabis and opiates Gastritis UTI Intractable vomiting Plan Potassium supplement IV IV fluid Correct electrolytes Antibiotics Per consultants Subjective ROS Limited/Unobtainable: No Constitutional: Reports: malaise Objective Objective Last 24 Hour Vital Signs Date Time Temp Pulse Resp B/P (MAP) Pulse Ox O2 Delivery O2 Flow Rate FiO2 12/26/19 08:00 98.1 74 18 125/93 (104) 98 12/26/19 06:03 97.6 12/26/19 04:00 97.6 73 20 125/76 (92) 99 12/26/19 01:58 97.6 12/26/19 00:00 97.6 76 20 132/76 (94) 98 12/25/19 21:49 97.9 12/25/19 21:00 Room Air 12/25/19 20:00 97.9 86 20 150/98 (115) 100 12/25/19 16:00 97.8 100 20 160/92 (114) 100 12/25/19 12:00 97.0 74 18 111/51 (71) 100 Intake and Output 12/25/19 12/26/19 19:00 07:00 Intake Total 250.0 ml Balance 250.0 ml Intake IV Total 250.0 ml # Voids 3 Current Medications Medications (Trade) Dose Ordered Sig/Vicki Route PRN Reason Start Time Stop Time Status Last Admin Dose Admin Acetaminophen (Tylenol) 650 mg Q6H PRN ORAL For Pain 12/25/19 15:45 01/24/20 15:44 Clonidine HCl (Catapres Tab) 0.1 mg Q4H PRN ORAL bp over 170 syst 12/24/19 20:15 03/23/20 20:14 Dextrose/Sodium Chloride 1,000 ml @ 75 mls/hr [id number] IV 12/24/19 23:00 01/23/20 22:59 12/25/19 12:22 Famotidine (Pepcid I.v.) 20 mg Q12H PRN IVP stomach pain 12/25/19 15:48 01/24/20 15:47 12/26/19 09:45 Hydromorphone HCl (Dilaudid) 1 mg Q4H PRN IVP For Pain 12/25/19 21:15 01/01/20 21:14 12/26/19 09:44 Ondansetron HCl (Zofran) 4 mg EVERY 4 HOURS PRN IVP Nausea & Vomiting 12/24/19 22:15 01/23/20 22:14 12/26/19 05:17 Pantoprazole (Protonix) 40 mg ACBREAKFAST ORAL 12/26/19 11:30 01/25/20 11:29 Potassium Chloride 100 ml @ 100 mls/hr Q1HR IVPB 12/26/19 10:00 12/26/19 15:59 12/26/19 09:44 Potassium Chloride (K-Dur) 40 meq TWICE A DAY ORAL 12/25/19 18:00 03/24/20 17:59 12/26/19 09:43 Thiamine HCl 100 mg/Dextrose 56 ml @ 112 mls/hr Q24H IVPB 12/24/19 20:30 01/23/20 20:29 12/25/19 20:33 Laboratory Tests 12/26/19 06:21: White Blood Count 9.0, Red Blood Count 3.55L, Hemoglobin 12.7, Hematocrit 35.7L, Mean Corpuscular Volume 101H, Mean Corpuscular Hemoglobin 35.9H, Mean Corpuscular Hemoglobin Concent 35.7, Red Cell Distribution Width 12.2, Platelet Count 191, Mean Platelet Volume 7.3, Neutrophils (%) (Auto) 52.3, Lymphocytes (%) (Auto) 36.6, Monocytes (%) (Auto) 9.5, Eosinophils (%) (Auto) 0.8, Basophils (%) (Auto) 0.8, Prothrombin Time 10.8, Prothromb Time International Ratio 1.0, Sodium Level 137, Potassium Level 2.8L, Chloride Level 101, Carbon Dioxide Level 23, Anion Gap 13, Blood Urea Nitrogen 7, Creatinine 0.6, Estimat Glomerular Filtration Rate > 60, Glucose Level 112H, Calcium Level 7.9L, Phosphorus Level 3.2, Total Bilirubin 1.2H, Direct Bilirubin 0.2, Aspartate Amino Transf (AST/SGOT) 14L, Alanine Aminotransferase (ALT/SGPT) 16, Alkaline Phosphatase 28L , Ammonia 15, Total Protein 6.5, Albumin 3.4, Globulin 3.1, Albumin/Globulin Ratio 1.1, Hepatitis A IgM Antibody [Pending], Hepatitis B Surface Antigen [Pending], Hepatitis B Core IgM Antibody [Pending], Hepatitis C Antibody [Pending] Height (Feet): 5 Height (Inches): 5.00 Weight (Pounds): 116 General Appearance: no apparent distress Cardiovascular: normal rate Respiratory/Chest: lungs clear Crescencio Cottrell MD Dec 26, 2019 10:58
[2019-12-26 12:00] VITALS: BP 126/80
--- NOTE | 2019-12-26 12:48 | General Progress Note ---
Subjective Constitutional: Reports: weakness Allergies: Coded Allergies: No Known Allergies (Unverified , 01/04/13) All Systems: reviewed and negative except above Subjective feeling better Objective Last 24 Hour Vital Signs Date Time Temp Pulse Resp B/P (MAP) Pulse Ox O2 Delivery O2 Flow Rate FiO2 12/26/19 08:00 98.1 74 18 125/93 (104) 98 12/26/19 06:03 97.6 12/26/19 04:00 97.6 73 20 125/76 (92) 99 12/26/19 01:58 97.6 12/26/19 00:00 97.6 76 20 132/76 (94) 98 12/25/19 21:49 97.9 12/25/19 21:00 Room Air 12/25/19 20:00 97.9 86 20 150/98 (115) 100 12/25/19 16:00 97.8 100 20 160/92 (114) 100 Intake and Output 12/25/19 12/26/19 19:00 07:00 Intake Total 250.0 ml Balance 250.0 ml Intake IV Total 250.0 ml # Voids 3 Laboratory Tests 12/26/19 06:21: White Blood Count 9.0, Red Blood Count 3.55L, Hemoglobin 12.7, Hematocrit 35.7L, Mean Corpuscular Volume 101H, Mean Corpuscular Hemoglobin 35.9H, Mean Corpuscular Hemoglobin Concent 35.7, Red Cell Distribution Width 12.2, Platelet Count 191, Mean Platelet Volume 7.3, Neutrophils (%) (Auto) 52.3, Lymphocytes (%) (Auto) 36.6, Monocytes (%) (Auto) 9.5, Eosinophils (%) (Auto) 0.8, Basophils (%) (Auto) 0.8, Prothrombin Time 10.8, Prothromb Time International Ratio 1.0, Sodium Level 137, Potassium Level 2.8L, Chloride Level 101, Carbon Dioxide Level 23, Anion Gap 13, Blood Urea Nitrogen 7, Creatinine 0.6, Estimat Glomerular Filtration Rate > 60, Glucose Level 112H, Calcium Level 7.9L, Phosphorus Level 3.2, Total Bilirubin 1.2H, Direct Bilirubin 0.2, Aspartate Amino Transf (AST/SGOT) 14L, Alanine Aminotransferase (ALT/SGPT) 16, Alkaline Phosphatase 28L , Ammonia 15, Total Protein 6.5, Albumin 3.4, Globulin 3.1, Albumin/Globulin Ratio 1.1, Hepatitis A IgM Antibody [Pending], Hepatitis B Surface Antigen [Pending], Hepatitis B Core IgM Antibody [Pending], Hepatitis C Antibody [Pending] Height (Feet): 5 Height (Inches): 5.00 Weight (Pounds): 116 General Appearance: lethargic EENT: normal ENT inspection Neck: normal alignment Cardiovascular: normal peripheral pulses, normal rate, regular rhythm Respiratory/Chest: chest wall non-tender, lungs clear, normal breath sounds Abdomen: normal bowel sounds, non tender, soft Extremities: normal inspection Edema: no edema noted Arm (L), no edema noted Arm (R), no edema noted Leg (L), no edema noted Leg (R), no edema noted Pedal (L), no edema noted Pedal (R), no edema noted Generalized Neurologic: responsive, motor weakness Skin: normal pigmentation, warm/dry Assessment/Plan Problem List: (1) Acute abdominal pain ICD Codes: R10.0 - Acute abdomen SNOMED: 936498638 (2) UTI (urinary tract infection) ICD Codes: N39.0 - Urinary tract infection, site not specified SNOMED: 08909041 (3) Hypokalemia ICD Codes: E87.6 - Hypokalemia SNOMED: 65031747 (4) VANDANA (acute kidney injury) ICD Codes: N17.9 - Acute kidney failure, unspecified SNOMED: 02695179, 5615324 (5) Intractable vomiting ICD Codes: R11.10 - Vomiting, unspecified SNOMED: 772135587 Status: stable, progressing Assessment/Plan: gi neph f/u pain control cbc bmp Franklin Chambers DO Dec 26, 2019 12:48
--- NOTE | 2019-12-26 14:21 | General Progress Note ---
Subjective ROS Limited/Unobtainable: Yes Allergies: Coded Allergies: No Known Allergies (Unverified , 01/04/13) Objective Last 24 Hour Vital Signs Date Time Temp Pulse Resp B/P (MAP) Pulse Ox O2 Delivery O2 Flow Rate FiO2 12/26/19 12:00 98.8 72 18 126/80 (95) 98 12/26/19 09:00 Room Air 12/26/19 08:00 98.1 74 18 125/93 (104) 98 12/26/19 06:03 97.6 12/26/19 04:00 97.6 73 20 125/76 (92) 99 12/26/19 01:58 97.6 12/26/19 00:00 97.6 76 20 132/76 (94) 98 12/25/19 21:49 97.9 12/25/19 21:00 Room Air 12/25/19 20:00 97.9 86 20 150/98 (115) 100 12/25/19 16:00 97.8 100 20 160/92 (114) 100 Intake and Output 12/25/19 12/26/19 19:00 07:00 Intake Total 250.0 ml Balance 250.0 ml Intake IV Total 250.0 ml # Voids 3 Laboratory Tests 12/26/19 06:21: White Blood Count 9.0, Red Blood Count 3.55L, Hemoglobin 12.7, Hematocrit 35.7L, Mean Corpuscular Volume 101H, Mean Corpuscular Hemoglobin 35.9H, Mean Corpuscular Hemoglobin Concent 35.7, Red Cell Distribution Width 12.2, Platelet Count 191, Mean Platelet Volume 7.3, Neutrophils (%) (Auto) 52.3, Lymphocytes (%) (Auto) 36.6, Monocytes (%) (Auto) 9.5, Eosinophils (%) (Auto) 0.8, Basophils (%) (Auto) 0.8, Prothrombin Time 10.8, Prothromb Time International Ratio 1.0, Sodium Level 137, Potassium Level 2.8L, Chloride Level 101, Carbon Dioxide Level 23, Anion Gap 13, Blood Urea Nitrogen 7, Creatinine 0.6, Estimat Glomerular Filtration Rate > 60, Glucose Level 112H, Calcium Level 7.9L, Phosphorus Level 3.2, Total Bilirubin 1.2H, Direct Bilirubin 0.2, Aspartate Amino Transf (AST/SGOT) 14L, Alanine Aminotransferase (ALT/SGPT) 16, Alkaline Phosphatase 28L , Ammonia 15, Total Protein 6.5, Albumin 3.4, Globulin 3.1, Albumin/Globulin Ratio 1.1, Hepatitis A IgM Antibody [Pending], Hepatitis B Surface Antigen [Pending], Hepatitis B Core IgM Antibody [Pending], Hepatitis C Antibody [Pendi ng] Height (Feet): 5 Height (Inches): 5.00 Weight (Pounds): 116 General Appearance: no apparent distress EENT: PERRL/EOMI Neck: normal alignment Cardiovascular: normal rate Respiratory/Chest: decreased breath sounds Abdomen: normal bowel sounds, non tender, soft Extremities: non-tender Assessment/Plan Status: stable, progressing Assessment/Plan: ETOH abuse abd pain ? cirrhosis RI h/o pancreatitis labs and us reviewed start clears and advance as tolerated thiamine ppi repeat labs check CT given severe unexplained abd pain will fu Homero Mckeon MD Dec 26, 2019 14:21
[2019-12-26] MEDS ORDERED: Omnipaque-300 100ml vial INJ PRN (14:30)
[2019-12-26 16:00] VITALS: BP 125/84
--- NOTE | 2019-12-26 17:08 | NUR ---
NURSE NOTES: patient left unit for CT scan abdd/pel. IV intact. signed consent.
--- NOTE | 2019-12-26 17:29 | Diagnostic Imaging Report ---
EXAM: CT Abdomen and Pelvis Without and With Intravenous Contrast CLINICAL HISTORY: ABD PAIN TECHNIQUE: Axial computed tomography images of the abdomen and pelvis without and with intravenous contrast. CTDI is 3 mGy and DLP is 154.8 mGy-cm. One or more of the following dose reduction techniques were used: automated exposure control, adjustment of the mA and/or kV according to patient size, use of iterative reconstruction technique. Coronal and sagittal reformatted images were created and reviewed. COMPARISON: 09/09/13 and 12/25/2019 FINDINGS: Lung bases: Unremarkable. No mass. No consolidation. ABDOMEN: Liver: Mild periportal edema, which can be seen with vigorous fluid resuscitation. Long-standing, subtle subcapsular right hepatic lobe segment /VII hypodensity measuring 1.8 x 0.7 cm, intervally decreased in size since 2013. This is of likely no acute clinical significance, and is probably benign given stability over time. Likely benign focal fatty infiltration along the falciform ligament of no additional clinical concern. Gallbladder and bile ducts: Unremarkable. No calcified stones. No ductal dilation. Pancreas: Unremarkable. No mass. No ductal dilation. Spleen: Unremarkable. No splenomegaly. Adrenals: Unremarkable. No mass. Kidneys and ureters: Benign left renal 1.8 cm cyst requires no follow- up. Otherwise unremarkable kidneys. No obstructing stones. No hydronephrosis. Stomach and bowel: Colonic diverticulosis without acute diverticulitis. Mild possible scattered areas of subsegmental colonic wall thickening could be due to nondistention or could represent colitis. PELVIS: Appendix: No findings to suggest acute appendicitis. Bladder: Urinary bladder wall thickening could be incidental, due to high outlet pressures, or could represent cystitis. No stones. Reproductive: Unremarkable as visualized. ABDOMEN and PELVIS: Intraperitoneal space: Unremarkable. No free air. No significant fluid collection. Bones/joints: See above. Soft tissues: Unremarkable. Vasculature: Unremarkable. No abdominal aortic aneurysm. Lymph nodes: Unremarkable. No enlarged lymph nodes. IMPRESSION: 1. Urinary bladder wall thickening could be incidental, due to high outlet pressures, or could represent cystitis. 2. Mild possible scattered areas of subsegmental colonic wall thickening could be due to nondistention or could represent colitis. 3. Mild periportal edema, which can be seen with vigorous fluid resuscitation. 4. Colonic diverticulosis without acute diverticulitis. 5. Long-standing, likely benign, likely clinically insignificant subcapsular right hepatic lobe focus as above. If there is further clinical concern, recommend MRI without and with IV contrast on an outpatient basis.
--- NOTE | 2019-12-26 19:21 | NUR ---
NURSE HAND-OFF: Important Events on Shift: Pain management, Potassium replacement. Patient Status: Stable Diet: Clear liquid Pending Orders: N/A Pending Results/Labs:N/A Pending MD notification:N/A Latest Vital Signs: Temperature 98.4 , Pulse 67 , B/P 125 /84 , Respiratory Rate 18 , O2 SAT 100 , Room Air, O2 Flow Rate . Vital Sign Comment: VS stable Latest Dixon Fall Score: 20 Fall Risk: Low Risk Safety Measures: Call light Within Reach, Bed Alarm Zone 1, Side Rails Side Rails x2, Bed position Low and Locked. Fall Precautions: Yellow Socks Yellow Gown Patient Fall Education Report given to Royer VARGAS.
[2019-12-26 20:00] VITALS: BP 139/90
--- NOTE | 2019-12-26 20:50 | NUR ---
NURSE NOTES: Patient in bed, awake, alert and verbally responsive. Able to make needs known .Respiration is even and unlabored. Complained of increasing abdominal pain, aware of medication and when it is due. Iv site noted. Iv fluid is infusing as ordered. Skin is warm and dry to touch. Abdomen is soft and non distended. Bed in low and locked position. provided safe environment. Call light is at bedside. Will continue plan of care.
[2019-12-26] MEDS: Thiamine HCl 100 MG in D5W 55 ML IVPB SCH (21:29)
--- NOTE | 2019-12-26 22:34 | NUR ---
NURSE NOTES: Complained 10/16 given PRn pain medication as ordered. Kept clean. Call light is at bedside.
[2019-12-27] VITALS (7 sets, daily range): BP systolic 99–144; BP diastolic 63–95
[2019-12-27] MEDS: HYDROmorphone 1mg/ml Carpuject IVP PRN ×5 (02:20→20:17)
[2019-12-27] MEDS: D5NS 1,000 ML IV SCH ×2 (06:08→20:16)
--- NOTE | 2019-12-27 06:30 | NUR ---
NURSE NOTES: Patient complained of pain , given PRn pain medication as ordered.
[2019-12-27 06:53] LABS: BASOPHILS % (AUTO) 1.2 % (0.0-2.0); EOSINOPHILS % (AUTO) 0.8 % (0.0-3.0); HEMATOCRIT 38.4 % (37.0-47.0); HEMOGLOBIN 12.9 G/DL (12.0-16.0); LYMPHOCYTES % (AUTO) 37.8 % (20.0-45.0); MEAN CORPUSCULAR VOLUME 106 FL (80-99); MONOCYTES % (AUTO) 10.7 % (1.0-10.0); NEUTROPHILS % (AUTO) 49.5 % (45.0-75.0); PLATELET COUNT 185 K/UL (150-450); RED BLOOD COUNT 3.62 M/UL (4.20-5.40); RED CELL DISTRIBUTION WIDTH 12.8 % (11.6-14.8); WHITE BLOOD COUNT 5.7 K/UL (4.8-10.8)
--- NOTE | 2019-12-27 07:24 | NUR ---
NURSE HAND-OFF: Important Events on Shift: Pain medication given Patient Status: Still in pain Diet: clear liquid Pending Orders: Pending Results/Labs: Pending MD notification: Latest Vital Signs: Temperature 99.0 , Pulse 83 , B/P 140 /95 , Respiratory Rate 18 , O2 SAT 98 , Room Air, O2 Flow Rate . Vital Sign Comment: WNL Latest Dixon Fall Score: 20 Fall Risk: Low Risk Safety Measures: Call light Within Reach, Bed Alarm Zone 1, Side Rails Side Rails x2, Bed position Low and Locked. Fall Precautions: Yellow Socks Yellow Gown Patient Fall Education Report given to Emily Fall.
[2019-12-27 07:55] LABS: ALANINE AMINOTRANSFERASE 17 U/L (12-78); ALBUMIN 3.3 G/DL (3.4-5.0); ALBUMIN/GLOBULIN RATIO 1.1 (1.0-2.7); ALKALINE PHOSPHATASE 28 U/L (46-116); ANION GAP 6 mmol/L (5-15); ASPARTATE AMINO TRANSFERASE 11 U/L (15-37); BILIRUBIN,TOTAL 1.4 MG/DL (0.2-1.0); BLOOD UREA NITROGEN 2 mg/dL (7-18); CALCIUM 8.4 MG/DL (8.5-10.1); CARBON DIOXIDE 27 MMOL/L (21-32); CHLORIDE 101 MMOL/L (98-107); CREATININE 0.8 MG/DL (0.55-1.30); PHOSPHORUS 2.3 MG/DL (2.5-4.9); POTASSIUM 3.6 MMOL/L (3.5-5.1); SODIUM 134 MMOL/L (136-145)
[2019-12-27 07:56] LABS: BILIRUBIN,DIRECT 0.3 MG/DL (0.0-0.3)
--- NOTE | 2019-12-27 07:57 | Infectious Diseases Prog Note ---
Assessment/Plan 49yo F with: Afebrile Leukocytosis to 13, improving Abd pain Heavy EtOH use R/o sepsis, UTI, cholecystitis R/o pancreatitis, lipse wnl 12/23 UA 5-10 WBC, UCx NTD Utox +opiates and MJ Abd US: Coarsened echogenicity of the hepatic parenchyma of uncertain significance. Simple left renal cyst, based on ultrasound criteria. Similar finding was noted on the previous study of 09/09/2013. 12/24 CT A/P wo con: 1. Urinary bladder wall thickening could be incidental, due to high outlet pressures, or could represent cystitis. 2. Mild possible scattered areas of subsegmental colonic wall thickening could be due to nondistention or could represent colitis. 3. Mild periportal edema, which can be seen with vigorous fluid resuscitation. 4. Colonic diverticulosis without acute diverticulitis. 5. Long-standing, likely benign, likely clinically insignificant subcapsular right hepatic lobe focus as above. COVID rapid PCR neg VANDANA, Cr 1.5, improved HIV screen neg HCV neg Acute HBV neg Plan: Cont to monitor off abx for now, no clear infection present Monitor CBC/CMP Monitor temp curve, hemodynamics Monitor resp status D/w RN Thank you for this consult. [facility] will continue to follow. Subjective Allergies: Coded Allergies: No Known Allergies (Unverified , 01/04/13) AF WBC 5.7 NAD Still w/ intermittent N/V, unable to keep breakfast down Up and walking with IV pole Objective Last 24 Hour Vital Signs Date Time Temp Pulse Resp B/P (MAP) Pulse Ox O2 Delivery O2 Flow Rate FiO2 12/27/19 04:00 99.0 83 18 140/95 (110) 98 12/27/19 00:00 98.2 79 18 132/90 (104) 99 12/26/19 20:49 Room Air 12/26/19 20:00 98.0 81 18 139/90 (106) 99 12/26/19 16:00 98.4 67 18 125/84 (98) 100 12/26/19 12:00 98.8 72 18 126/80 (95) 98 12/26/19 09:00 Room Air 12/26/19 08:00 98.1 74 18 125/93 (104) 98 Height (Feet): 5 Height (Inches): 5.00 Weight (Pounds): 116 Gen: NAD in bed HEENT: NCAT, EOMI CV: RRR Pulm: BL chest rise on RA Abd: Thin, soft, mildly TTP diffusely Ext: No c/c/e Neuro: Awake, alert, interactive Microbiology Date/Time Source Procedure Growth Status 12/25/19 09:15 Nasopharynx SARS-CoV-2 RdRp Gene Assay - Final Complete 12/24/19 18:16 Urine,Clean Catch Urine Culture - Final NO GROWTH AFTER 48 HOURS Complete Laboratory Tests Test 12/27/19 05:59 White Blood Count 5.7 K/UL (4.8-10.8) Red Blood Count 3.62 M/UL (4.20-5.40) L Hemoglobin 12.9 G/DL (12.0-16.0) Hematocrit 38.4 % (37.0-47.0) Mean Corpuscular Volume 106 FL (80-99) H Mean Corpuscular Hemoglobin 35.6 PG (27.0-31.0) H Mean Corpuscular Hemoglobin Concent 33.5 G/DL (32.0-36.0) Red Cell Distribution Width 12.8 % (11.6-14.8) Platelet Count 185 K/UL (150-450) Mean Platelet Volume 7.7 FL (6.5-10.1) Neutrophils (%) (Auto) 49.5 % (45.0-75.0) Lymphocytes (%) (Auto) 37.8 % (20.0-45.0) Monocytes (%) (Auto) 10.7 % (1.0-10.0) H Eosinophils (%) (Auto) 0.8 % (0.0-3.0) Basophils (%) (Auto) 1.2 % (0.0-2.0) Sodium Level 134 MMOL/L (136-145) L Potassium Level 3.6 MMOL/L (3.5-5.1) Chloride Level 101 MMOL/L (98-107) Carbon Dioxide Level 27 MMOL/L (21-32) Anion Gap 6 mmol/L (5-15) Blood Urea Nitrogen 2 mg/dL (7-18) L Creatinine 0.8 MG/DL (0.55-1.30) Estimat Glomerular Filtration Rate > 60 mL/min (>60) Glucose Level 96 MG/DL (74-106) Calcium Level 8.4 MG/DL (8.5-10.1) L Phosphorus Level 2.3 MG/DL (2.5-4.9) L Magnesium Level 1.6 MG/DL (1.8-2.4) L Total Bilirubin 1.4 MG/DL (0.2-1.0) H Direct Bilirubin 0.3 MG/DL (0.0-0.3) Aspartate Amino Transf (AST/SGOT) 11 U/L (15-37) L Alanine Aminotransferase (ALT/SGPT) 17 U/L (12-78) Alkaline Phosphatase 28 U/L (46-116) L C-Reactive Protein, Quantitative < 0.4 mg/dL (0.00-0.90) Total Protein 6.2 G/DL (6.4-8.2) L Albumin 3.3 G/DL (3.4-5.0) L Globulin 2.9 g/dL Albumin/Globulin Ratio 1.1 (1.0-2.7) Current Medications Medications (Trade) Dose Ordered Sig/Vicki Route PRN Reason Start Time Stop Time Status Last Admin Dose Admin Acetaminophen (Tylenol) 650 mg Q6H PRN ORAL For Pain 12/25/19 15:45 01/24/20 15:44 Barium Sulfate (Readi-Cat 2) 450 ml NOW PRN ORAL Radiology Procedure 12/26/19 14:30 12/28/19 14:29 Clonidine HCl (Catapres Tab) 0.1 mg Q4H PRN ORAL bp over 170 syst 12/24/19 20:15 03/23/20 20:14 Dextrose/Sodium Chloride 1,000 ml @ 75 mls/hr [id number] IV 12/24/19 23:00 01/23/20 22:59 12/27/19 06:08 Famotidine (Pepcid I.v.) 20 mg Q12H PRN IVP stomach pain 12/25/19 15:48 01/24/20 15:47 12/26/19 21:29 Hydromorphone HCl (Dilaudid) 1 mg Q4H PRN IVP For Pain 12/25/19 21:15 01/01/20 21:14 12/27/19 06:08 Iohexol (OMNIPAQUE-300 100ml) 100 ml NOW PRN INJ Radiology Procedure 12/26/19 14:30 12/28/19 14:29 Ondansetron HCl (Zofran) 4 mg EVERY 4 HOURS PRN IVP Nausea & Vomiting 12/24/19 22:15 01/23/20 22:14 12/27/19 06:07 Pantoprazole (Protonix) 40 mg ACBREAKFAST ORAL 12/26/19 11:30 01/25/20 11:29 12/27/19 06:07 Potassium Chloride (K-Dur) 40 meq TWICE A DAY ORAL 12/25/19 18:00 03/24/20 17:59 12/26/19 18:28 Thiamine HCl 100 mg/Dextrose 56 ml @ 112 mls/hr Q24H IVPB 12/24/19 20:30 01/23/20 20:29 12/26/19 21:29 Geraldine Ritchie M.D. Dec 27, 2019 07:57
--- NOTE | 2019-12-27 08:00 | NUR ---
NURSE NOTES: Patient alert and oriented,respirations unlabored.IV fluids infusing as ordered.patient on clear liquid,will monitor for complaint of nausea or vomiting.Call light within reach.
--- NOTE | 2019-12-27 08:51 | General Progress Note ---
Subjective Constitutional: Reports: weakness Allergies: Coded Allergies: No Known Allergies (Unverified , 01/04/13) All Systems: reviewed and negative except above Subjective sl nausea Objective Last 24 Hour Vital Signs Date Time Temp Pulse Resp B/P (MAP) Pulse Ox O2 Delivery O2 Flow Rate FiO2 12/27/19 04:00 99.0 83 18 140/95 (110) 98 12/27/19 00:00 98.2 79 18 132/90 (104) 99 12/26/19 20:49 Room Air 12/26/19 20:00 98.0 81 18 139/90 (106) 99 12/26/19 16:00 98.4 67 18 125/84 (98) 100 12/26/19 12:00 98.8 72 18 126/80 (95) 98 12/26/19 09:00 Room Air Intake and Output 12/26/19 12/27/19 19:00 07:00 Intake Total 665 ml 1231 ml Balance 665 ml 1231 ml Intake Oral 240 ml 500 ml IV Total 425 ml 731 ml # Voids 2 3 Laboratory Tests 12/27/19 05:59: White Blood Count 5.7, Red Blood Count 3.62L, Hemoglobin 12.9, Hematocrit 38.4, Mean Corpuscular Volume 106H, Mean Corpuscular Hemoglobin 35.6H, Mean Corpuscular Hemoglobin Concent 33.5, Red Cell Distribution Width 12.8, Platelet Count 185, Mean Platelet Volume 7.7, Neutrophils (%) (Auto) 49.5, Lymphocytes (%) (Auto) 37.8, Monocytes (%) (Auto) 10.7H, Eosinophils (%) (Auto) 0.8, Basophils (%) (Auto) 1.2, Sodium Level 134L, Potassium Level 3.6, Chloride Level 101, Carbon Dioxide Level 27, Anion Gap 6, Blood Urea Nitrogen 2L, Creatinine 0.8, Estimat Glomerular Filtration Rate > 60, Glucose Level 96, Calcium Level 8.4L, Phosphorus Level 2.3L, Magnesium Level 1.6L, Total Bilirubin 1.4H, Direct Bilirubin 0.3, Aspartate Amino Transf (AST/SGOT) 11L, Alanine Aminotransferase (ALT/SGPT) 17, Alkaline Phosphatase 28L, C-Reactive Protein, Quantitative < 0.4, Total Protein 6.2L, Albumin 3.3L, Globulin 2.9, Albumin/Globulin Ratio 1.1 Height (Feet): 5 Height (Inches): 5.00 Weight (Pounds): 116 General Appearance: lethargic EENT: normal ENT inspection Neck: normal alignment Cardiovascular: normal peripheral pulses, normal rate, regular rhythm Respiratory/Chest: chest wall non-tender, lungs clear, normal breath sounds Abdomen: normal bowel sounds, non tender, soft Extremities: normal inspection Edema: no edema noted Arm (L), no edema noted Arm (R), no edema noted Leg (L), no edema noted Leg (R), no edema noted Pedal (L), no edema noted Pedal (R), no edema noted Generalized Neurologic: responsive, motor weakness Skin: normal pigmentation, warm/dry Assessment/Plan Problem List: (1) Acute abdominal pain ICD Codes: R10.0 - Acute abdomen SNOMED: 206116988 (2) UTI (urinary tract infection) ICD Codes: N39.0 - Urinary tract infection, site not specified SNOMED: 46996062 (3) Hypokalemia ICD Codes: E87.6 - Hypokalemia SNOMED: 85647439 (4) VANDANA (acute kidney injury) ICD Codes: N17.9 - Acute kidney failure, unspecified SNOMED: 28042504, 0949475 (5) Intractable vomiting ICD Codes: R11.10 - Vomiting, unspecified SNOMED: 023522116 Status: stable, progressing Assessment/Plan: gi neph f/u pain control cbc bmp am adv diet FishFranklin CarlosMadeleine DO Dec 27, 2019 08:51
[2019-12-27] MEDS ORDERED: Potassium Phosphate 20 MM in NS 275 ML IV ONE (10:00)
--- NOTE | 2019-12-27 13:44 | Nephrology Progress Note ---
Assessment/Plan Problem List: (1) VANDANA (acute kidney injury) (2) Dehydration (3) Intractable vomiting (4) Hypokalemia Assessment No failure mostly dehydration Electrolyte imbalance Urine positive for cannabis and opiates Gastritis UTI Intractable vomiting Plan December 26: Abnormal electrolyte addressed. Continue per consultants. Previously: Potassium supplement IV IV fluid Correct electrolytes Antibiotics Per consultants Subjective ROS Limited/Unobtainable: No Objective Objective Last 24 Hour Vital Signs Date Time Temp Pulse Resp B/P (MAP) Pulse Ox O2 Delivery O2 Flow Rate FiO2 12/27/19 09:00 Room Air 12/27/19 04:00 99.0 83 18 140/95 (110) 98 12/27/19 00:00 98.2 79 18 132/90 (104) 99 12/26/19 20:49 Room Air 12/26/19 20:00 98.0 81 18 139/90 (106) 99 12/26/19 16:00 98.4 67 18 125/84 (98) 100 Intake and Output 12/26/19 12/27/19 19:00 07:00 Intake Total 665 ml 1231 ml Balance 665 ml 1231 ml Intake Oral 240 ml 500 ml IV Total 425 ml 731 ml # Voids 2 3 Current Medications Medications (Trade) Dose Ordered Sig/Vicki Route PRN Reason Start Time Stop Time Status Last Admin Dose Admin Acetaminophen (Tylenol) 650 mg Q6H PRN ORAL For Pain 12/25/19 15:45 01/24/20 15:44 Barium Sulfate (Readi-Cat 2) 450 ml NOW PRN ORAL Radiology Procedure 12/26/19 14:30 12/28/19 14:29 Clonidine HCl (Catapres Tab) 0.1 mg Q4H PRN ORAL bp over 170 syst 12/24/19 20:15 03/23/20 20:14 Dextrose/Sodium Chloride 1,000 ml @ 50 mls/hr Q20H IV 12/24/19 23:00 01/23/20 22:59 12/27/19 06:08 Famotidine (Pepcid I.v.) 20 mg Q12H PRN IVP stomach pain 12/25/19 15:48 01/24/20 15:47 12/27/19 16:21 Hydromorphone HCl (Dilaudid) 1 mg Q4H PRN IVP For Pain 12/25/19 21:15 11/25/20 21:14 12/27/19 16:13 Iohexol (OMNIPAQUE-300 100ml) 100 ml NOW PRN INJ Radiology Procedure 12/26/19 14:30 12/28/19 14:29 Ondansetron HCl (Zofran) 4 mg EVERY 4 HOURS PRN IVP Nausea & Vomiting 12/24/19 22:15 01/23/20 22:14 12/27/19 10:55 Pantoprazole (Protonix) 40 mg ACBREAKFAST ORAL 12/26/19 11:30 01/25/20 11:29 12/27/19 06:07 Potassium Chloride (K-Dur) 40 meq TWICE A DAY ORAL 12/25/19 18:00 03/24/20 17:59 12/27/19 17:33 Thiamine HCl 100 mg/Dextrose 56 ml @ 112 mls/hr Q24H IVPB 12/24/19 20:30 01/23/20 20:29 12/26/19 21:29 Laboratory Tests 12/27/19 05:59: White Blood Count 5.7, Red Blood Count 3.62L, Hemoglobin 12.9, Hematocrit 38.4, Mean Corpuscular Volume 106H, Mean Corpuscular Hemoglobin 35.6H, Mean Corpuscular Hemoglobin Concent 33.5, Red Cell Distribution Width 12.8, Platelet Count 185, Mean Platelet Volume 7.7, Neutrophils (%) (Auto) 49.5, Lymphocytes (%) (Auto) 37.8, Monocytes (%) (Auto) 10.7H, Eosinophils (%) (Auto) 0.8, Basophils (%) (Auto) 1.2, Sodium Level 134L, Potassium Level 3.6, Chloride Level 101, Carbon Dioxide Level 27, Anion Gap 6, Blood Urea Nitrogen 2L, Creatinine 0.8, Estimat Glomerular Filtration Rate > 60, Glucose Level 96, Calcium Level 8.4L, Phosphorus Level 2.3L, Magnesium Level 1.6L, Total Bilirubin 1.4H, Direct Bilirubin 0.3, Aspartate Amino Transf (AST/SGOT) 11L, Alanine Aminotransferase (ALT/SGPT) 17, Alkaline Phosphatase 28L, C-Reactive Protein, Quantitative < 0.4, Total Protein 6.2L, Albumin 3.3L, Globulin 2.9, Albumin/Globulin Ratio 1.1 Height (Feet): 5 Height (Inches): 5.00 Weight (Pounds): 116 General Appearance: no apparent distress Crescencio Cottrell MD Dec 27, 2019 13:44
--- NOTE | 2019-12-27 13:49 | General Progress Note ---
Subjective ROS Limited/Unobtainable: Yes Allergies: Coded Allergies: No Known Allergies (Unverified , 01/04/13) Objective Last 24 Hour Vital Signs Date Time Temp Pulse Resp B/P (MAP) Pulse Ox O2 Delivery O2 Flow Rate FiO2 12/27/19 09:00 Room Air 12/27/19 04:00 99.0 83 18 140/95 (110) 98 12/27/19 00:00 98.2 79 18 132/90 (104) 99 12/26/19 20:49 Room Air 12/26/19 20:00 98.0 81 18 139/90 (106) 99 12/26/19 16:00 98.4 67 18 125/84 (98) 100 Intake and Output 12/26/19 12/27/19 19:00 07:00 Intake Total 665 ml 1231 ml Balance 665 ml 1231 ml Intake Oral 240 ml 500 ml IV Total 425 ml 731 ml # Voids 2 3 Laboratory Tests 12/27/19 05:59: White Blood Count 5.7, Red Blood Count 3.62L, Hemoglobin 12.9, Hematocrit 38.4, Mean Corpuscular Volume 106H, Mean Corpuscular Hemoglobin 35.6H, Mean Corpuscular Hemoglobin Concent 33.5, Red Cell Distribution Width 12.8, Platelet Count 185, Mean Platelet Volume 7.7, Neutrophils (%) (Auto) 49.5, Lymphocytes (%) (Auto) 37.8, Monocytes (%) (Auto) 10.7H, Eosinophils (%) (Auto) 0.8, Basophils (%) (Auto) 1.2, Sodium Level 134L, Potassium Level 3.6, Chloride Level 101, Carbon Dioxide Level 27, Anion Gap 6, Blood Urea Nitrogen 2L, Creatinine 0.8, Estimat Glomerular Filtration Rate > 60, Glucose Level 96, Calcium Level 8.4L, Phosphorus Level 2.3L, Magnesium Level 1.6L, Total Bilirubin 1.4H, Direct Bilirubin 0.3, Aspartate Amino Transf (AST/SGOT) 11L, Alanine Aminotransferase (ALT/SGPT) 17, Alkaline Phosphatase 28L, C-Reactive Protein, Quantitative < 0.4, Total Protein 6.2L, Albumin 3.3L, Globulin 2.9, Albumin/Globulin Ratio 1.1 Height (Feet): 5 Height (Inches): 5.00 Weight (Pounds): 116 General Appearance: alert EENT: normal ENT inspection Neck: supple Cardiovascular: normal rate Respiratory/Chest: accessory muscle use Abdomen: normal bowel sounds, non tender, soft Extremities: non-tender Assessment/Plan Status: stable, progressing Assessment/Plan: ETOH abuse abd pain ? cirrhosis RI h/o pancreatitis labs and us reviewed CT reviewed advance diet thiamine ppi repeat labs avoid ETOH and THC ok for Dc GI stand point will Homero Rios MD Dec 27, 2019 13:48
--- NOTE | 2019-12-27 16:20 | NUR ---
CASE MANAGEMENT:REVIEW 12/27/19 SI: INTRACTABLE VOMITING. UTI. ACUTE ABDOMINAL PAIN 99.0 83 18 140/95 98% ON RA MAG-1.6 IS: IV K-PHOS X1 IV MAG SULFATE Q1HRS X2 PROTONIX PO QAM IVF@50/HR IV THIAMINE Q24 IV DILAUDID Q4HRS PRN : MED/SURG 4 EAST PLAN: START REGULAR DIET
--- NOTE | 2019-12-27 18:30 | NUR ---
NURSE NOTES: Patient resting,no complaint of pain or nausea at this time.Call light within reach.
--- NOTE | 2019-12-27 19:35 | NUR ---
NURSE HAND-OFF: elias VARGAS Important Events on Shift:[ patient received Magnesium bolus as ordered,potassium phosphate as ordered,pain medication as ordered] Patient Status: [stable] Diet: patient from clear liquids to regular diet[] Pending Orders: [Labs in AM 12.28.19] Pending Results/Labs:[] Pending MD notification:[] Latest Vital Signs: Temperature 98.2 , Pulse 81 , B/P 133 /73 , Respiratory Rate 18 , O2 SAT 97 , Room Air, O2 Flow Rate . Vital Sign Comment: [] Latest Dixon Fall Score: 20 Fall Risk: Low Risk Safety Measures: Call light Within Reach, Bed Alarm Zone 1, Side Rails Side Rails x2, Bed position Low and Locked. Fall Precautions: Yellow Socks Yellow Gown Patient Fall Education Report given to [].
--- NOTE | 2019-12-27 20:00 | NUR ---
NURSE NOTES: Patient received in bed, awake and alert. C/o pain, will medicate as prescribed. Patient is ambulatory with steady gait, IV is intact and patent. Call light within reach. Will continue with plan of care.
[2019-12-27] MEDS: Thiamine HCl 100 MG in D5W 55 ML IVPB SCH (20:16)
[2019-12-28] MEDS: HYDROmorphone 1mg/ml Carpuject IVP PRN ×3 (00:14→08:57)
[2019-12-28 04:00] VITALS: BP 133/91
--- NOTE | 2019-12-28 07:17 | NUR ---
NURSE HAND-OFF: Important Events on Shift:[pain management; pt requesting nicotine patch and sleeping pills] Patient Status: [stable] Diet: [Regular] Pending Orders: [] Pending Results/Labs:[] Pending MD notification:[] Latest Vital Signs: Temperature 99.0 , Pulse 78 , B/P 133 /91 , Respiratory Rate 18 , O2 SAT 100 , Room Air, O2 Flow Rate . Vital Sign Comment: [] Latest Dixon Fall Score: 35 Fall Risk: Medium Risk Safety Measures: Call light Within Reach, Bed Alarm Zone 1, Side Rails Side Rails x2, Bed position Low and Locked. Fall Precautions: Patient Fall Education Report given to [She VARGAS].
[2019-12-28 07:39] LABS: BASOPHILS % (AUTO) 1.6 % (0.0-2.0); EOSINOPHILS % (AUTO) 1.1 % (0.0-3.0); HEMATOCRIT 43.6 % (37.0-47.0); HEMOGLOBIN 14.8 G/DL (12.0-16.0); LYMPHOCYTES % (AUTO) 35.2 % (20.0-45.0); MEAN CORPUSCULAR VOLUME 105 FL (80-99); MONOCYTES % (AUTO) 11.8 % (1.0-10.0); NEUTROPHILS % (AUTO) 50.4 % (45.0-75.0); PLATELET COUNT 198 K/UL (150-450); RED BLOOD COUNT 4.15 M/UL (4.20-5.40); RED CELL DISTRIBUTION WIDTH 12.1 % (11.6-14.8); WHITE BLOOD COUNT 6.5 K/UL (4.8-10.8)
[2019-12-28 07:49] LABS: ANION GAP 6 mmol/L (5-15); BLOOD UREA NITROGEN 1 mg/dL (7-18); CALCIUM 8.9 MG/DL (8.5-10.1); CARBON DIOXIDE 26 MMOL/L (21-32); CHLORIDE 101 MMOL/L (98-107); CREATININE 0.7 MG/DL (0.55-1.30); POTASSIUM 4.1 MMOL/L (3.5-5.1); SODIUM 133 MMOL/L (136-145)
--- NOTE | 2019-12-28 07:51 | NUR ---
NURSE NOTES: Patient alert x4; on room air, no sing of distress and shortness of breath; no sing of chest pain; IV LAC fluid running; patient ambulatory, steady gait; side rails up x2, breaks engaged, bed at lowest position, call light within reach; will keep monitoring.
[2019-12-28 08:00] VITALS: BP 130/83
--- NOTE | 2019-12-28 08:32 | Infectious Diseases Prog Note ---
Assessment/Plan 49yo F with: Afebrile Leukocytosis to 13, improving Abd pain Heavy EtOH use R/o sepsis, UTI, cholecystitis R/o pancreatitis, lipse wnl 12/23 UA 5-10 WBC, UCx NTD Utox +opiates and MJ Abd US: Coarsened echogenicity of the hepatic parenchyma of uncertain significance. Simple left renal cyst, based on ultrasound criteria. Similar finding was noted on the previous study of 09/09/2013. 12/24 CT A/P wo con: 1. Urinary bladder wall thickening could be incidental, due to high outlet pressures, or could represent cystitis. 2. Mild possible scattered areas of subsegmental colonic wall thickening could be due to nondistention or could represent colitis. 3. Mild periportal edema, which can be seen with vigorous fluid resuscitation. 4. Colonic diverticulosis without acute diverticulitis. 5. Long-standing, likely benign, likely clinically insignificant subcapsular right hepatic lobe focus as above. COVID rapid PCR neg VANDANA, Cr 1.5, improved HIV screen neg HCV neg Acute HBV neg Plan: Cont to monitor off abx for now, no clear infection present Monitor CBC/CMP Monitor temp curve, hemodynamics Monitor resp status D/w RN Thank you for this consult. [facility] will continue to follow. Subjective Allergies: Coded Allergies: No Known Allergies (Unverified , 01/04/13) AF WBC 6.5 NAD Able to keep down a few bites of eggs this morning, but still with N/V Objective Last 24 Hour Vital Signs Date Time Temp Pulse Resp B/P (MAP) Pulse Ox O2 Delivery O2 Flow Rate FiO2 12/28/19 04:00 99.0 78 18 133/91 (105) 100 12/27/19 23:22 98.8 78 18 130/63 (85) 100 12/27/19 21:00 Room Air 12/27/19 20:00 99.0 95 18 99/64 (76) 100 12/27/19 16:00 98.2 81 18 133/73 (93) 97 12/27/19 12:00 98.1 81 18 144/90 (108) 99 12/27/19 09:00 Room Air Height (Feet): 5 Height (Inches): 5.00 Weight (Pounds): 116 Gen: NAD in bed HEENT: NCAT, EOMI CV: RRR Pulm: BL chest rise on RA Abd: Thin, soft, mildly TTP diffusely Ext: No c/c/e Neuro: Awake, alert, interactive Microbiology Date/Time Source Procedure Growth Status 12/25/19 09:15 Nasopharynx SARS-CoV-2 RdRp Gene Assay - Final Complete Laboratory Tests Test 12/28/19 06:50 White Blood Count 6.5 K/UL (4.8-10.8) Red Blood Count 4.15 M/UL (4.20-5.40) L Hemoglobin 14.8 G/DL (12.0-16.0) Hematocrit 43.6 % (37.0-47.0) Mean Corpuscular Volume 105 FL (80-99) H Mean Corpuscular Hemoglobin 35.6 PG (27.0-31.0) H Mean Corpuscular Hemoglobin Concent 33.9 G/DL (32.0-36.0) Red Cell Distribution Width 12.1 % (11.6-14.8) Platelet Count 198 K/UL (150-450) Mean Platelet Volume 7.8 FL (6.5-10.1) Neutrophils (%) (Auto) 50.4 % (45.0-75.0) Lymphocytes (%) (Auto) 35.2 % (20.0-45.0) Monocytes (%) (Auto) 11.8 % (1.0-10.0) H Eosinophils (%) (Auto) 1.1 % (0.0-3.0) Basophils (%) (Auto) 1.6 % (0.0-2.0) Sodium Level 133 MMOL/L (136-145) L Potassium Level 4.1 MMOL/L (3.5-5.1) Chloride Level 101 MMOL/L (98-107) Carbon Dioxide Level 26 MMOL/L (21-32) Anion Gap 6 mmol/L (5-15) Blood Urea Nitrogen 1 mg/dL (7-18) L Creatinine 0.7 MG/DL (0.55-1.30) Estimat Glomerular Filtration Rate > 60 mL/min (>60) Glucose Level 110 MG/DL (74-106) H Calcium Level 8.9 MG/DL (8.5-10.1) Current Medications Medications (Trade) Dose Ordered Sig/Vicki Route PRN Reason Start Time Stop Time Status Last Admin Dose Admin Acetaminophen (Tylenol) 650 mg Q6H PRN ORAL For Pain 12/25/19 15:45 01/24/20 15:44 Barium Sulfate (Readi-Cat 2) 450 ml NOW PRN ORAL Radiology Procedure 12/26/19 14:30 12/28/19 14:29 Clonidine HCl (Catapres Tab) 0.1 mg Q4H PRN ORAL bp over 170 syst 12/24/19 20:15 03/23/20 20:14 Famotidine (Pepcid I.v.) 20 mg Q12H PRN IVP stomach pain 12/25/19 15:48 01/24/20 15:47 12/28/19 04:34 Hydromorphone HCl (Dilaudid) 1 mg Q4H PRN IVP For Pain 12/25/19 21:15 01/01/20 21:14 12/28/19 04:34 Iohexol (OMNIPAQUE-300 100ml) 100 ml NOW PRN INJ Radiology Procedure 12/26/19 14:30 12/28/19 14:29 Ondansetron HCl (Zofran) 4 mg EVERY 4 HOURS PRN IVP Nausea & Vomiting 12/24/19 22:15 01/23/20 22:14 12/28/19 00:14 Pantoprazole (Protonix) 40 mg ACBREAKFAST ORAL 12/26/19 11:30 01/25/20 11:29 12/28/19 06:02 Geraldine Ritchie M.D. Dec 28, 2019 08:32
--- NOTE | 2019-12-28 09:54 | General Progress Note ---
Subjective Constitutional: Reports: weakness Allergies: Coded Allergies: No Known Allergies (Unverified , 01/04/13) All Systems: reviewed and negative except above Subjective sl nausea Objective Last 24 Hour Vital Signs Date Time Temp Pulse Resp B/P (MAP) Pulse Ox O2 Delivery O2 Flow Rate FiO2 12/28/19 09:27 98.6 12/28/19 08:00 98.6 67 18 130/83 (99) 99 12/28/19 04:00 99.0 78 18 133/91 (105) 100 12/27/19 23:22 98.8 78 18 130/63 (85) 100 12/27/19 21:00 Room Air 12/27/19 20:00 99.0 95 18 99/64 (76) 100 12/27/19 16:00 98.2 81 18 133/73 (93) 97 12/27/19 12:00 98.1 81 18 144/90 (108) 99 Intake and Output 12/27/19 12/28/19 19:00 07:00 Intake Total 1455 ml 606 ml Balance 1455 ml 606 ml Intake Oral 480 ml IV Total 975 ml 606 ml # Voids 3 4 Laboratory Tests 12/28/19 06:50: White Blood Count 6.5, Red Blood Count 4.15L, Hemoglobin 14.8, Hematocrit 43.6, Mean Corpuscular Volume 105H, Mean Corpuscular Hemoglobin 35.6H, Mean Corpuscu lar Hemoglobin Concent 33.9, Red Cell Distribution Width 12.1, Platelet Count 198, Mean Platelet Volume 7.8, Neutrophils (%) (Auto) 50.4, Lymphocytes (%) (Auto) 35.2, Monocytes (%) (Auto) 11.8H, Eosinophils (%) (Auto) 1.1, Basophils (%) (Auto) 1.6, Sodium Level 133L, Potassium Level 4.1, Chloride Level 101, Carbon Dioxide Level 26, Anion Gap 6, Blood Urea Nitrogen 1L, Creatinine 0.7, Estimat Glomerular Filtration Rate > 60, Glucose Level 110H, Calcium Level 8.9 Height (Feet): 5 Height (Inches): 5.00 Weight (Pounds): 116 General Appearance: lethargic EENT: normal ENT inspection Neck: normal alignment Cardiovascular: normal peripheral pulses, normal rate, regular rhythm Respiratory/Chest: chest wall non-tender, lungs clear, normal breath sounds Abdomen: normal bowel sounds, non tender, soft Extremities: normal inspection Edema: no edema noted Arm (L), no edema noted Arm (R), no edema noted Leg (L), no edema noted Leg (R), no edema noted Pedal (L), no edema noted Pedal (R), no edema noted Generalized Neurologic: responsive, motor weakness Skin: normal pigmentation, warm/dry Assessment/Plan Problem List: (1) Acute abdominal pain ICD Codes: R10.0 - Acute abdomen SNOMED: 925036693 (2) UTI (urinary tract infection) ICD Codes: N39.0 - Urinary tract infection, site not specified SNOMED: 26724933 (3) Hypokalemia ICD Codes: E87.6 - Hypokalemia SNOMED: 90126215 (4) VANDANA (acute kidney injury) ICD Codes: N17.9 - Acute kidney failure, unspecified SNOMED: 74937035, 0034894 (5) Intractable vomiting ICD Codes: R11.10 - Vomiting, unspecified SNOMED: 914782624 Status: stable, progressing Assessment/Plan: gi neph f/u pain control cbc bmp am adv diet dc plan Franklin Fish DO Dec 28, 2019 09:54
--- NOTE | 2019-12-28 10:49 | Nephrology Progress Note ---
Assessment/Plan Problem List: (1) VANDANA (acute kidney injury) (2) Dehydration (3) Intractable vomiting (4) Hypokalemia Assessment No failure mostly dehydration Electrolyte imbalance Urine positive for cannabis and opiates Gastritis UTI Intractable vomiting Plan December 27: Labs reviewed. Stable from renal standpoint of view. Per orders. December 26: Abnormal electrolyte addressed. Continue per consultants. Previously: Potassium supplement IV IV fluid Correct electrolytes Antibiotics Per consultants Subjective ROS Limited/Unobtainable: No Objective Objective Last 24 Hour Vital Signs Date Time Temp Pulse Resp B/P (MAP) Pulse Ox O2 Delivery O2 Flow Rate FiO2 12/28/19 09:27 98.6 12/28/19 09:00 Room Air 12/28/19 08:00 98.6 67 18 130/83 (99) 99 12/28/19 04:00 99.0 78 18 133/91 (105) 100 12/27/19 23:22 98.8 78 18 130/63 (85) 100 12/27/19 21:00 Room Air 12/27/19 20:00 99.0 95 18 99/64 (76) 100 12/27/19 16:00 98.2 81 18 133/73 (93) 97 12/27/19 12:00 98.1 81 18 144/90 (108) 99 Intake and Output 12/27/19 12/28/19 19:00 07:00 Intake Total 1455 ml 606 ml Balance 1455 ml 606 ml Intake Oral 480 ml IV Total 975 ml 606 ml # Voids 3 4 Current Medications Medications (Trade) Dose Ordered Sig/Vicki Route PRN Reason Start Time Stop Time Status Last Admin Dose Admin Acetaminophen (Tylenol) 650 mg Q6H PRN ORAL For Pain 12/25/19 15:45 01/24/20 15:44 Barium Sulfate (Readi-Cat 2) 450 ml NOW PRN ORAL Radiology Procedure 12/26/19 14:30 12/28/19 14:29 Clonidine HCl (Catapres Tab) 0.1 mg Q4H PRN ORAL bp over 170 syst 12/24/19 20:15 03/23/20 20:14 Famotidine (Pepcid I.v.) 20 mg Q12H PRN IVP stomach pain 12/25/19 15:48 01/24/20 15:47 12/28/19 04:34 Hydromorphone HCl (Dilaudid) 1 mg Q4H PRN IVP For Pain 12/25/19 21:15 01/01/20 21:14 12/28/19 08:57 Iohexol (OMNIPAQUE-300 100ml) 100 ml NOW PRN INJ Radiology Procedure 12/26/19 14:30 12/28/19 14:29 Nicotine (Nicoderm) 1 patch Q24H TDERMAL 12/28/19 10:00 03/27/20 09:59 Ondansetron HCl (Zofran) 4 mg EVERY 4 HOURS PRN IVP Nausea & Vomiting 12/24/19 22:15 01/23/20 22:14 12/28/19 08:56 Pantoprazole (Protonix) 40 mg ACBREAKFAST ORAL 12/26/19 11:30 01/25/20 11:29 12/28/19 06:02 Zolpidem Tartrate (Ambien) 5 mg HSPRN PRN ORAL Insomnia 12/28/19 09:45 01/04/20 09:44 Laboratory Tests 12/28/19 06:50: White Blood Count 6.5, Red Blood Count 4.15L, Hemoglobin 14.8, Hematocrit 43.6, Mean Corpuscular Volume 105H, Mean Corpuscular Hemoglobin 35.6H, Mean Corpuscular Hemoglobin Concent 33.9, Red Cell Distribution Width 12.1, Platelet Count 198, Mean Platelet Volume 7.8, Neutrophils (%) (Auto) 50.4, Lymphocytes (%) (Auto) 35.2, Monocytes (%) (Auto) 11.8H, Eosinophils (%) (Auto) 1.1, Basophils (%) (Auto) 1.6, Sodium Level 133L, Potassium Level 4.1, Chloride Level 101, Carbon Dioxide Level 26, Anion Gap 6, Blood Urea Nitrogen 1L, Creatinine 0.7, Estimat Glomerular Filtration Rate > 60, Glucose Level 110H, Calcium Level 8.9 Height (Feet): 5 Height (Inches): 5.00 Weight (Pounds): 116 General Appearance: no apparent distress Crescencio Cottrell MD Dec 28, 2019 10:49
--- NOTE | 2019-12-28 11:31 | NUR ---
NURSE NOTES: Patient's want MD Fish to communicate him regarding patient; MD Fish is aware.
[2019-12-28 12:00] VITALS: BP 162/111
--- NOTE | 2019-12-28 12:01 | NUR ---
NURSE NOTES: Patient stated that doesn't feel comfortable to go home without pain and nausea medications; also patient said did not have a bowel movement for days; also ate breakfast a little bit and she wanna see her self if she is able to tolerate solid food before she go home; I communicated the matter to MD Fish and MD Mckeon;
--- NOTE | 2019-12-28 12:55 | NUR ---
CASE MANAGEMENT:REVIEW 12/28/19 SI: INTRACTABLE VOMITING. UTI. ACUTE ABDOMINAL PAIN 98.4 83 18 162/111 100% ON RA IS: PROTONIX PO QAM IVF@50/HR IV THIAMINE Q24 IV DILAUDID Q4HRS PRN : MED/SURG 4 [facility] PLAN: DISCHARGE
--- NOTE | 2019-12-28 13:40 | NUR ---
CHARGE NURSE NOTE: Pt will be discharged today. She is still nauseated and having an abdominal pain, even cleared her for discharge. Pain meds stopped. She and her state that her GI problems have not resolved yet. Pt does not have any prescriptions. Primary nurse She notified . asked to provide prescription. is not available till Monday. notified.
--- NOTE | 2019-12-28 14:04 | NUR ---
CHARGE NURSE NOTE: Still waiting for response. Paged him second time.
[2019-12-28] MEDS: HYDROcodone/Acetamin 5/325 tab ORAL PRN ×2 (15:06→21:05)
[2019-12-28 16:00] VITALS: BP 125/84
--- NOTE | 2019-12-28 19:20 | General Progress Note ---
Subjective Allergies: Coded Allergies: No Known Allergies (Unverified , 01/04/13) Subjective Feels same on solid food asking for narcotics Objective Last 24 Hour Vital Signs Date Time Temp Pulse Resp B/P (MAP) Pulse Ox O2 Delivery O2 Flow Rate FiO2 12/28/19 16:00 98.5 75 18 125/84 (98) 99 12/28/19 15:36 98.4 12/28/19 13:34 162/111 12/28/19 12:00 98.4 83 18 162/111 (128) 100 12/28/19 09:27 98.6 12/28/19 09:00 Room Air 12/28/19 08:00 98.6 67 18 130/83 (99) 99 12/28/19 04:00 99.0 78 18 133/91 (105) 100 12/27/19 23:22 98.8 78 18 130/63 (85) 100 12/27/19 21:00 Room Air 12/27/19 20:00 99.0 95 18 99/64 (76) 100 Intake and Output 12/27/19 12/28/19 19:00 07:00 Intake Total 1455 ml 606 ml Balance 1455 ml 606 ml Intake Oral 480 ml IV Total 975 ml 606 ml # Voids 3 4 Laboratory Tests 12/28/19 06:50: White Blood Count 6.5, Red Blood Count 4.15L, Hemoglobin 14.8, Hematocrit 43.6, Mean Corpuscular Volume 105H, Mean Corpuscular Hemoglobin 35.6H, Mean Co rpuscular Hemoglobin Concent 33.9, Red Cell Distribution Width 12.1, Platelet Count 198, Mean Platelet Volume 7.8, Neutrophils (%) (Auto) 50.4, Lymphocytes (%) (Auto) 35.2, Monocytes (%) (Auto) 11.8H, Eosinophils (%) (Auto) 1.1, Basoph ils (%) (Auto) 1.6, Sodium Level 133L, Potassium Level 4.1, Chloride Level 101, Carbon Dioxide Level 26, Anion Gap 6, Blood Urea Nitrogen 1L, Creatinine 0.7, Estimat Glomerular Filtration Rate > 60, Glucose Level 110H, Calcium Level 8.9 Height (Feet): 5 Height (Inches): 5.00 Weight (Pounds): 116 Objective WDWN NCAT supple CTA RR abd soft and non tender (when distracted) no edema Assessment/Plan Status: stable, progressing Assessment/Plan: Assessment/Plan Status: stable, progressing Assessment/Plan: ETOH abuse abd pain ? cirrhosis RI h/o pancreatitis labs and us reviewed CT reviewed advance diet thiamine ppi repeat labs avoid ETOH and THC ok for Dc GI stand point will Stanton Pulido MD Dec 28, 2019 19:20
--- NOTE | 2019-12-28 19:28 | NUR ---
HAND-OFF: Report given to ALICIA Madsen.
[2019-12-28 19:41] VITALS: BP 118/76
--- NOTE | 2019-12-28 20:05 | NUR ---
NURSE NOTES: Patient in bed, awake, alert and verbally responsive. Able to make needs known. REspiration is even and unlabored. No complaint of pain or discomfort noted. Abdomen is soft and non distended. No vomiting noted. Bed in low and locked position. Provide safe environment. Call light is at bedside. Will continue plan of care.
[2019-12-28] MEDS: Zolpidem 5mg tab ORAL PRN (21:36)
[2019-12-29 04:00] VITALS: BP 116/83
[2019-12-29] MEDS: HYDROcodone/Acetamin 5/325 tab ORAL PRN (05:34)
--- NOTE | 2019-12-29 07:07 | NUR ---
NURSE HAND-OFF: Important Events on Shift: WNL Patient Status: Given Pain medication x 2 Diet: REg Pending Orders: Pending Results/Labs: Pending MD notification: Latest Vital Signs: Temperature 98.2 , Pulse 71 , B/P 116 /83 , Respiratory Rate 20 , O2 SAT 100 , Room Air, O2 Flow Rate . Vital Sign Comment: WNL Latest Dixon Fall Score: 35 Fall Risk: Medium Risk Safety Measures: Call light Within Reach, Bed Alarm Zone 1, Side Rails Side Rails x2, Bed position Low and Locked. Fall Precautions: Patient Fall Education Report given to ALICIA Nowak.
--- NOTE | 2019-12-29 07:12 | NUR ---
NURSE NOTES: Patient alert x4; on room air, no sing of distress and shortness of breath; no sing of chest pain; IV Left For-arm flushes well; side rails up x2, breaks engaged, bed at lowest position; call light within reach; will keep monitoring.
[2019-12-29 07:49] LABS: BASOPHILS % (AUTO) 1.9 % (0.0-2.0); EOSINOPHILS % (AUTO) 1.8 % (0.0-3.0); HEMATOCRIT 41.4 % (37.0-47.0); LYMPHOCYTES % (AUTO) 35.1 % (20.0-45.0); MEAN CORPUSCULAR VOLUME 105 FL (80-99); MONOCYTES % (AUTO) 12.3 % (1.0-10.0); PLATELET COUNT 200 K/UL (150-450); RED BLOOD COUNT 3.95 M/UL (4.20-5.40); RED CELL DISTRIBUTION WIDTH 12.1 % (11.6-14.8); WHITE BLOOD COUNT 4.7 K/UL (4.8-10.8)
[2019-12-29 08:00] VITALS: BP 119/84
[2019-12-29 08:07] LABS: ANION GAP 9 mmol/L (5-15); BLOOD UREA NITROGEN 3 mg/dL (7-18); CALCIUM 9.3 MG/DL (8.5-10.1); CARBON DIOXIDE 26 MMOL/L (21-32); CHLORIDE 100 MMOL/L (98-107); CREATININE 0.9 MG/DL (0.55-1.30); POTASSIUM 4.1 MMOL/L (3.5-5.1); SODIUM 135 MMOL/L (136-145)
--- NOTE | 2019-12-29 10:34 | Consultation ---
History of Present Illness General Date patient seen: Dec 29, 2019 Chief Complaint: Abdominal Pain Referring physician: PCP Reason for Consultation: R/o infection Present Illness Allergies: Coded Allergies: No Known Allergies (Unverified , 01/04/13) Medication History Scheduled Metoclopramide Hcl (Metoclopramide Hcl*), 10 MG IJ EVERY 4 HOURS, (Reported) No Known Medications* (NKM - No Known Medications*), 0 ., (Reported) Discontinued Medications Lorazepam* (Ativan*), 1 MG ORAL THREE TIMES A DAY Discontinued Reason: Pt stopped taking med Ondansetron (Zofran), 4 MG ORAL Q8H PRN for Nausea & Vomiting Discontinued Reason: Pt stopped taking med Patient History Healthcare decision maker Resuscitation status Advanced Directive on File Physical Exam Last 24 Hour Vital Signs Date Time Temp Pulse Resp B/P (MAP) Pulse Ox O2 Delivery O2 Flow Rate FiO2 12/29/19 09:00 Room Air 12/29/19 08:00 99.7 75 16 119/84 (96) 100 12/29/19 04:00 98.2 71 20 116/83 (94) 100 12/28/19 20:46 Room Air 12/28/19 19:41 98.6 61 20 118/76 (90) 99 12/28/19 16:00 98.5 75 18 125/84 (98) 99 12/28/19 15:36 98.4 12/28/19 13:34 162/111 12/28/19 12:00 98.4 83 18 162/111 (128) 100 Intake and Output 12/28/19 12/29/19 19:00 07:00 Intake Total 720 ml 700 ml Balance 720 ml 700 ml Intake Oral 720 ml 700 ml # Voids 3 3 Laboratory Tests Test 12/29/19 07:00 White Blood Count 4.7 K/UL (4.8-10.8) L Red Blood Count 3.95 M/UL (4.20-5.40) L Hemoglobin 14.0 G/DL (12.0-16.0) Hematocrit 41.4 % (37.0-47.0) Mean Corpuscular Volume 105 FL (80-99) H Mean Corpuscular Hemoglobin 35.5 PG (27.0-31.0) H Mean Corpuscular Hemoglobin Concent 33.8 G/DL (32.0-36.0) Red Cell Distribution Width 12.1 % (11.6-14.8) Platelet Count 200 K/UL (150-450) Mean Platelet Volume 7.5 FL (6.5-10.1) Neutrophils (%) (Auto) 49.0 % (45.0-75.0) Lymphocytes (%) (Auto) 35.1 % (20.0-45.0) Monocytes (%) (Auto) 12.3 % (1.0-10.0) H Eosinophils (%) (Auto) 1.8 % (0.0-3.0) Basophils (%) (Auto) 1.9 % (0.0-2.0) Sodium Level 135 MMOL/L (136-145) L Potassium Level 4.1 MMOL/L (3.5-5.1) Chloride Level 100 MMOL/L (98-107) Carbon Dioxide Level 26 MMOL/L (21-32) Anion Gap 9 mmol/L (5-15) Blood Urea Nitrogen 3 mg/dL (7-18) L Creatinine 0.9 MG/DL (0.55-1.30) Estimat Glomerular Filtration Rate > 60 mL/min (>60) Glucose Level 97 MG/DL (74-106) Calcium Level 9.3 MG/DL (8.5-10.1) Height (Feet): 5 Height (Inches): 5.00 Weight (Pounds): 116 Medications Current Medications Medications (Trade) Dose Ordered Sig/Vicki Route PRN Reason Start Time Stop Time Status Last Admin Dose Admin Acetaminophen (Tylenol) 650 mg Q6H PRN ORAL For Pain 12/25/19 15:45 01/24/20 15:44 Acetaminophen/ Hydrocodone Bitart ([place] 5/325) 1 tab Q6H PRN ORAL Severe Pain (Pain Scale 7-10) 12/28/19 14:45 01/04/20 14:44 12/29/19 05:34 Clonidine HCl (Catapres Tab) 0.1 mg Q4H PRN ORAL bp over 170 syst 12/24/19 20:15 03/23/20 20:14 12/28/19 13:34 Famotidine (Pepcid I.v.) 20 mg Q12H PRN IVP stomach pain 12/25/19 15:48 01/24/20 15:47 12/29/19 05:32 Nicotine (Nicoderm) 1 patch Q24H TDERMAL 12/28/19 10:00 03/27/20 09:59 12/29/19 09:25 Ondansetron HCl (Zofran) 4 mg EVERY 4 HOURS PRN IVP Nausea & Vomiting 12/24/19 22:15 01/23/20 22:14 12/28/19 21:05 Pantoprazole (Protonix) 40 mg ACBREAKFAST ORAL 12/26/19 11:30 01/25/20 11:29 12/29/19 05:32 Zolpidem Tartrate (Ambien) 5 mg HSPRN PRN ORAL Insomnia 12/28/19 09:45 01/04/20 09:44 12/28/19 21:36 Assessment/Plan Assessment/Plan: (1) Abdominal pain (2) Cyclical vomiting syndrome seen dictated Saqib Lee Dec 29, 2019 10:33
--- NOTE | 2019-12-29 11:42 | General Progress Note ---
Subjective ROS Limited/Unobtainable: Yes Allergies: Coded Allergies: No Known Allergies (Unverified , 01/04/13) Objective Last 24 Hour Vital Signs Date Time Temp Pulse Resp B/P (MAP) Pulse Ox O2 Delivery O2 Flow Rate FiO2 12/29/19 09:00 Room Air 12/29/19 08:00 99.7 75 16 119/84 (96) 100 12/29/19 04:00 98.2 71 20 116/83 (94) 100 12/28/19 20:46 Room Air 12/28/19 19:41 98.6 61 20 118/76 (90) 99 12/28/19 16:00 98.5 75 18 125/84 (98) 99 12/28/19 15:36 98.4 12/28/19 13:34 162/111 12/28/19 12:00 98.4 83 18 162/111 (128) 100 Intake and Output 12/28/19 12/29/19 18:59 06:59 Intake Total 720 ml 700 ml Balance 720 ml 700 ml Intake Oral 720 ml 700 ml # Voids 3 3 Laboratory Tests 12/29/19 07:00: White Blood Count 4.7L, Red Blood Count 3.95L, Hemoglobin 14.0, Hematocrit 41.4, Mean Corpuscular Volume 105H, Mean Corpuscular Hemoglobin 35.5H, Mean Corpuscular Hemoglobin Concent 33.8, Red Cell Distribution Width 12.1, Platelet Count 200, Mean Platelet Volume 7.5, Neutrophils (%) (Auto) 49.0, Lymphocytes (%) (Auto) 35.1, Monocytes (%) (Auto) 12.3H, Eosinophils (%) (Auto) 1.8, Basophils (%) (Auto) 1.9, Sodium Level 135L, Potassium Level 4.1, Chloride Level 100, Carbon Dioxide Level 26, Anion Gap 9, Blood Urea Nitrogen 3L, Creatinine 0.9, Estimat Glomerular Filtration Rate > 60, Glucose Level 97, Calcium Level 9.3 Height (Feet): 5 Height (Inches): 5.00 Weight (Pounds): 116 Assessment/Plan Problem List: (1) Hyperglycemia ICD Codes: R73.9 - Hyperglycemia, unspecified SNOMED: 28998253 (2) Cyclical vomiting with nausea ICD Codes: G43.A0 - Cyclical vomiting, not intractable SNOMED: 33061577, 36241230 (3) LFT elevation ICD Codes: R79.89 - Other specified abnormal findings of blood chemistry SNOMED: 495414027 (4) Esophagitis ICD Codes: K20.9 - Esophagitis SNOMED: 19984913 (5) Acute abdominal pain (6) Colitis, acute (7) Alcohol withdrawal ICD Codes: F10.239 - Alcohol dependence with withdrawal, unspecified SNOMED: 338401808 (8) Chest pain ICD Codes: R07.9 - Chest pain, unspecified SNOMED: 98194736 (9) Acute abdominal pain ICD Codes: R10.0 - Acute abdomen SNOMED: 030846165 (10) UTI (urinary tract infection) ICD Codes: N39.0 - Urinary tract infection, site not specified SNOMED: 97570649 (11) Pancreatitis ICD Codes: K85.90 - Acute pancreatitis without necrosis or infection, unspecified SNOMED: 60647299 (12) Gastritis ICD Codes: K29.70 - Gastritis SNOMED: 9101005 (13) Dehydration ICD Codes: E86.0 - Dehydration SNOMED: 71164765 (14) Hypokalemia ICD Codes: E87.6 - Hypokalemia SNOMED: 27225684 (15) Intractable vomiting ICD Codes: R11.10 - Vomiting, unspecified SNOMED: 451107329 Status: stable, progressing Assessment/Plan: colitis abdominal pain afebrile dehydration intractable pain consulted dr polk for pain management Mana Thompson MD Dec 29, 2019 11:42
[2019-12-29 12:00] VITALS: BP 126/76
--- NOTE | 2019-12-29 14:56 | NUR ---
CASE MANAGEMENT:REVIEW 12/29/19 SI: INTRACTABLE VOMITING. UTI. ACUTE ABDOMINAL PAIN. ETOH ABUSE 99.7 75 16 119/84 100% ON RA IS: NORCO PO Q6HRS PRN NICOTINE PATCH Q24 PROTONIX PO QAM IV PEPCID Q12 PRN IV ZOFRAN Q4HRS : MED/SURG [facility]
--- NOTE | 2019-12-29 14:59 | NUR ---
CLEARED BY GI FOR DISCHARGE HOME
[2019-12-29 16:00] VITALS: BP 124/77
--- NOTE | 2019-12-29 16:57 | General Progress Note ---
Subjective Allergies: Coded Allergies: No Known Allergies (Unverified , 01/04/13) Subjective Feels same on solid food tolerating PO d/c planning noted Objective Last 24 Hour Vital Signs Date Time Temp Pulse Resp B/P (MAP) Pulse Ox O2 Delivery O2 Flow Rate FiO2 12/29/19 16:00 98.9 70 18 124/77 (93) 97 12/29/19 12:00 98.0 69 15 126/76 (93) 96 12/29/19 09:00 Room Air 12/29/19 08:00 99.7 75 16 119/84 (96) 100 12/29/19 04:00 98.2 71 20 116/83 (94) 100 12/28/19 20:46 Room Air 12/28/19 19:41 98.6 61 20 118/76 (90) 99 Intake and Output 12/28/19 12/29/19 19:00 07:00 Intake Total 720 ml 700 ml Balance 720 ml 700 ml Intake Oral 720 ml 700 ml # Voids 3 3 Laboratory Tests 12/29/19 07:00: White Blood Count 4.7L, Red Blood Count 3.95L, Hemoglobin 14.0, Hematocrit 41.4, Mean Corpuscular Volume 105H, Mean Corpuscular Hemoglobin 35.5H, Mean Corpuscular Hemoglobin Concent 33.8, Red Cell Distribution Width 12.1, Platelet Count 200, Mean Platelet Volume 7.5, Neutrophils (%) (Auto) 49.0, Lymphocytes (%) (Auto) 35.1, Monocytes (%) (Auto) 12.3H, Eosinophils (%) (Auto) 1.8, Basophils (%) (Auto) 1.9, Sodium Level 135L, Potassium Level 4.1, Chloride Level 100, Carbon Dioxide Level 26, Anion Gap 9, Blood Urea Nitrogen 3L, Creatinine 0.9, Estimat Glomerular Filtration Rate > 60, Glucose Level 97, Calcium Level 9.3 Height (Feet): 5 Height (Inches): 5.00 Weight (Pounds): 116 Objective WDWN NCAT supple CTA RR abd soft and non tender no edema Assessment/Plan Status: stable, progressing Assessment/Plan: Assessment/Plan Assessment/Plan: ETOH abuse abd pain ? cirrhosis RI h/o pancreatitis Recommendations po diet thiamine ppi avoid ETOH and THC ok for d/c from GI stand point Stanton Juarez MD Dec 29, 2019 16:57
--- NOTE | 2019-12-29 19:32 | NUR ---
HAND-OFF: Report given to [place].
--- NOTE | 2019-12-29 19:33 | NUR ---
NURSE NOTES: Received report from ALICIA Jhaveri. AAO x 4, on room air. IV site intact. Denies pain and N/V. No labored breathing. Bed locked, lowest position, alarm on, side rails up, call light within reach. Will continue to monitor.
[2019-12-29 20:00] VITALS: BP 113/79
[2019-12-29] MEDS: Zolpidem 5mg tab ORAL PRN (20:31)
[2019-12-30] VITALS: BP 104/75
[2019-12-30 04:00] VITALS: BP 125/82
--- NOTE | 2019-12-30 07:05 | NUR ---
NURSE HAND-OFF: Important Events on Shift:none Patient Status: stable Diet: reg Pending Orders: discharge Pending Results/Labs: Pending MD notification: Latest Vital Signs: Temperature 99.0 , Pulse 72 , B/P 125 /82 , Respiratory Rate 20 , O2 SAT 100 , Room Air, O2 Flow Rate . Vital Sign Comment: [] Latest Dixon Fall Score: 35 Fall Risk: Medium Risk Safety Measures: Call light Within Reach, Bed Alarm Zone 1, Side Rails Side Rails x2, Bed position Low and Locked. Fall Precautions: Patient Fall Education Addendum: 12/30/19 at 0742 by JAYESH DEL VALLE RN RN HAND-OFF: Report given to
[2019-12-30 08:00] VITALS: BP 120/63
--- NOTE | 2019-12-30 08:02 | Infectious Diseases Prog Note ---
Assessment/Plan 49yo F with: Afebrile Leukocytosis to 13, improving Abd pain Heavy EtOH use R/o sepsis, UTI, cholecystitis R/o pancreatitis, lipse wnl 12/23 UA 5-10 WBC, UCx NTD Utox +opiates and MJ Abd US: Coarsened echogenicity of the hepatic parenchyma of uncertain significance. Simple left renal cyst, based on ultrasound criteria. Similar finding was noted on the previous study of 09/09/2013. 12/24 CT A/P wo con: 1. Urinary bladder wall thickening could be incidental, due to high outlet pressures, or could represent cystitis. 2. Mild possible scattered areas of subsegmental colonic wall thickening could be due to nondistention or could represent colitis. 3. Mild periportal edema, which can be seen with vigorous fluid resuscitation. 4. Colonic diverticulosis without acute diverticulitis. 5. Long-standing, likely benign, likely clinically insignificant subcapsular right hepatic lobe focus as above. COVID rapid PCR neg VANDANA, Cr 1.5, improved HIV screen neg HCV neg Acute HBV neg Plan: Cont to monitor off abx for now, no clear infection present OK to d/c from ID standpoint Monitor CBC/CMP Monitor temp curve, hemodynamics Monitor resp status D/w RN Thank you for this consult. [facility] will continue to follow. Subjective Allergies: Coded Allergies: No Known Allergies (Unverified , 01/04/13) AF No new labs NAD Doing much better No more pain Eating, no N/V Objective Last 24 Hour Vital Signs Date Time Temp Pulse Resp B/P (MAP) Pulse Ox O2 Delivery O2 Flow Rate FiO2 12/30/19 04:00 99.0 72 20 125/82 (96) 100 12/30/19 00:00 98.6 68 20 104/75 (85) 100 12/29/19 21:00 Room Air 12/29/19 20:00 98.4 68 18 113/79 (90) 100 12/29/19 16:00 98.9 70 18 124/77 (93) 97 12/29/19 12:00 98.0 69 15 126/76 (93) 96 12/29/19 09:00 Room Air Height (Feet): 5 Height (Inches): 5.00 Weight (Pounds): 116 Gen: NAD in bed HEENT: NCAT, EOMI Pulm: BL chest rise on RA Abd: Thin, soft, NTND Ext: No c/c/e Neuro: Awake, alert, interactive Current Medications Medications (Trade) Dose Ordered Sig/Vicki Route PRN Reason Start Time Stop Time Status Last Admin Dose Admin Acetaminophen (Tylenol) 650 mg Q6H PRN ORAL For Pain 12/25/19 15:45 01/24/20 15:44 Acetaminophen/ Hydrocodone Bitart ([place] 5/325) 1 tab Q6H PRN ORAL Severe Pain (Pain Scale 7-10) 12/28/19 14:45 01/04/20 14:44 12/29/19 05:34 Famotidine (Pepcid I.v.) 20 mg Q12H PRN IVP stomach pain 12/25/19 15:48 01/24/20 15:47 12/29/19 17:57 Nicotine (Nicoderm) 1 patch Q24H TDERMAL 12/28/19 10:00 03/27/20 09:59 12/29/19 09:25 Ondansetron HCl (Zofran) 4 mg EVERY 4 HOURS PRN IVP Nausea & Vomiting 12/24/19 22:15 01/23/20 22:14 12/29/19 11:12 Pantoprazole (Protonix) 40 mg ACBREAKFAST ORAL 12/26/19 11:30 01/25/20 11:29 12/30/19 05:36 Zolpidem Tartrate (Ambien) 5 mg HSPRN PRN ORAL Insomnia 12/28/19 09:45 01/04/20 09:44 12/29/19 20:31 Geraldine Ritchie M.D. Dec 30, 2019 08:02
--- NOTE | 2019-12-30 08:37 | General Progress Note ---
Subjective Date patient seen: Dec 30, 2019 Time patient seen: 07:00 - am Constitutional: Reports: no symptoms HEENT: Reports: no symptoms Cardiovascular: Reports: no symptoms Respiratory: Reports: no symptoms Gastrointestinal/Abdominal: Reports: no symptoms Genitourinary: Reports: no symptoms Neurologic/Psychiatric: Reports: no symptoms Endocrine: Reports: no symptoms Hematologic/Lymphatic: Reports: no symptoms Allergies: Coded Allergies: No Known Allergies (Unverified , 01/04/13) Subjective In bed no signs of pain or distress. Reports feeling better and has no new complaints at this time. Objective Last 24 Hour Vital Signs Date Time Temp Pulse Resp B/P (MAP) Pulse Ox O2 Delivery O2 Flow Rate FiO2 12/30/19 04:00 99.0 72 20 125/82 (96) 100 12/30/19 00:00 98.6 68 20 104/75 (85) 100 12/29/19 21:00 Room Air 12/29/19 20:00 98.4 68 18 113/79 (90) 100 12/29/19 16:00 98.9 70 18 124/77 (93) 97 12/29/19 12:00 98.0 69 15 126/76 (93) 96 12/29/19 09:00 Room Air Intake and Output 12/29/19 12/30/19 19:00 07:00 Intake Total 800 ml Balance 800 ml Other 800 ml # Voids 2 Height (Feet): 5 Height (Inches): 5.00 Weight (Pounds): 116 General Appearance: no apparent distress, alert EENT: PERRL/EOMI, normal ENT inspection Neck: non-tender, normal alignment Cardiovascular: normal rate, regular rhythm Respiratory/Chest: lungs clear, normal breath sounds Abdomen: non tender, soft Extremities: non-tender Edema: no edema noted Generalized Neurologic: alert, oriented x 3 Skin: normal pigmentation Assessment/Plan Assessment/Plan: (1) Abdominal pain (2) Cyclical vomiting syndrome Patient will continue on medication as needed D/w Dr. Rodgers and he concurred. Saqib Lee Dec 30, 2019 08:36
[2019-12-30] MEDS ORDERED: Lidocaine 1% Plain 30 ml INJ PRN (11:15)
[2019-12-30] MEDS ORDERED: Heparin1,000 units/500ml Premix(Conc:2 units/ml) IV PRN (11:15)
[2019-12-30 12:00] VITALS: BP 131/96
--- NOTE | 2019-12-30 16:15 | NUR ---
NURSE NOTES: Pt discharged AMA ,risks and benefits with out completing TX and explained to pt but pt stated she is tired of the hospital and needed to go home . Charge nurse and MD made aware . IV,removed ,pt picked up by spouse
[2019-12-30] MEDS ORDERED: Dyna-Hex 2% Top Sol 2oz TOPIC SCH (20:00)
--- NOTE | 2019-12-31 15:19 | Discharge Summary ---
Discharge Summary Discharge Summary _ DATE OF ADMISSION: 12/24/2019 DATE OF DISCHARGE: 12/30/2019 Patient left AGAINST MEDICAL ADVICE REASON FOR ADMISSION: 49 years old female with history of alcohol abuse, hypertension, prior pancreatitis , presented with upper abdominal pain and vomiting. Patient reported that she had binge drinking few days ago. Patient try to take hydrocodone at home , but the pain and vomiting were too severe to tolerate. No fever or chills. No headache or neck pain , no trauma. Upon evaluation vital signs revealed tachycardia with heart rate 124. Laboratory work-up revealed leukocytosis WBC 13.8, hemoglobin 16.6, hematocrit 49.2 , stable electrolytes . BUN 30 creatinine 1.5 Glucose 133. AST 17,ALT 17, lipase 105 Urinalysis revealed +4 protein , pyuria and many bacteria, +1 leukocyte esterase. Abdominal ultrasound revealed coarsened echogenicity of the hepatic parenchyma of uncertain significance. Simple left renal cyst. Urine toxicology screen was positive for opiates and marijuana. Rapid COVID-19 was negative. Patient admitted with acute kidney injury, UTI , dehydration gastritis ,intractable vomiting. , CONSULTANTS: ID specialist Dr. Ritchie GI specialist Dr. Mckeon personal lines sales executive Dr. Cottrell pain specialist Dr. Rodgers [facility]: Patient admitted de to medical surgical floor. GI specialist consulted. Patient started on IV fluids and broad-spectrum antibiotic. Pain management was addressed. Antiemetic provided as needed. CT of the abdomen and pelvis without contrast revealed thickening of urinary bladder wall , representing high outlet pressure versus cystitis. Mild scattered area of subsegmental colonic wall thickening could be due to non-distention or could represent colitis. Colonic diverticulosis without evidence of diverticulitis Patient started on clear liquid diet . Patient started on thiamine and folate. PPI initiated. Diet was further advanced as tolerated. Patient was counseled to avoid ETOH and THC. Patient also undergone CT scan of the abdomen and pelvis with contrast which revealed the same finding as CT scan without contrast . GI specialist cleared patient for discharge from GI standpoint. Patient initially was on empiric antibiotic. Urine culture revealed no evidence of growth. Leukocytosis was improving. Lipase remained within normal limits. HIV screen was negative. HCV was negative. Acute HBV was negative. ID specialist recommended to keep patient off antibiotics , since no evidence of infection ; and cleared patient for discharge from ID standpoint. Pain management was addressed as per pain specialist recommendation . Pain was controlled Antiemetic provided as needed. Fitting Room Attendant followed. Renal parameters and electrolytes were closely monitored. Electrolytes corrected as needed/potassium. Nephrotoxic's were avoided. Creatinine from 1.5 down to 0.9. Potassium 4.1. On 12/29 patient decided to leave AGAINST MEDICAL ADVICE without awaiting for discharge order from the attending physician. The risks and consequences of signing AGAINST MEDICAL ADVICE were discussed with patient in detail. Patient verbalized understanding, nevertheless signed AMA form and left. FINAL DIAGNOSES: Acute kidney injury Dehydration ETOH abuse Abdominal pain Possible cirrhosis History of pancreatitis Abdominal pain Cyclic vomiting syndrome Hypokalemia I have been assigned to dictate discharge summary for this account. I was not involved in the patient's management. Rajwinder Flaherty NP Dec 31, 2019 15:19
== END 2019-12-30 16:17 | disposition left against medical advice (07) | DRG 241 ==
LOC: EDBD 15:26 → EMR 15:49 → 4E 19:41 → EDBEDREQ 20:24 → 4E 12-29 23:33
DX: K29.70 Gastritis, unspecified, without bleeding (principal); N17.9 Acute kidney failure, unspecified; N39.0 Urinary tract infection, site not specified; I12.9 Hypertensive chronic kidney disease with stage 1 through stage 4 chronic kidney disease, or unspecified chronic kidney disease; N18.9 Chronic kidney disease, unspecified; F10.10 Alcohol abuse, uncomplicated; E86.0 Dehydration; K57.90 Diverticulosis of intestine, part unspecified, without perforation or abscess without bleeding; K74.60 Unspecified cirrhosis of liver; R10.9 Unspecified abdominal pain; E87.6 Hypokalemia
CPT/HCPCS: 36415; 74176; 74177; 76700; 80048; 80053; 80061; 80307; 81003; 82140; 82248; 82550; 82607; 82746; 82977; 83036; 83690; 83735; 83880; 84100; 84443; 84550; 85025; 85610; 86140; 86703; 86705; 86709; 86803; 87086; 87340; 96361; 96374; 96375; 96376; 99285; J2405; J7030; J8499; U0002